=== PATIENT | female | born 1970 | race Caucasian/White ===

== ENCOUNTER → 2018-03-08 16:03 | Outpatient (CLI) | payer BC, SELFPAY ==
[2018-03-08 18:14] LABS: Absolute Lymphocyte Count 1.98 X10^3/ul (0.83-4.51); Absolute Neutrophil Count 3.8 X10^3/uL (2.0-7.7); Basophil# 0.06 X10^3/uL; Basophil% 0.9 % (0-1); Eosinophil# 0.32 X10^3/uL; Eosinophils% 4.7 % (0-5); Hematocrit 40.6 % (37-47); Hemoglobin 13.8 g/dl (12.0-15.0); Lymphocyte # 1.98 X10^3/ul (4.0); Lymphocyte % 29.2 % (19-41); Mean Corpuscular Hgb 29.4 pg (27.0-32.0); Mean Corpuscular Volume 86.6 fL (81-99); Mean Platelet Vol. 9.4 fl (6.2-12.0); Monocyte# 0.56 X10^3/uL; Monocyte% 8.2 % (0-10); Neutrophil # 3.84 X10^3/uL (2.7-7.7); Neutrophil % 56.6 % (47-70); Platelet Count 452 K/mm3 (150-450); RBC Distribution Width CV 11.9 % (11.6-14.6); RBC Distribution Width SD 37.1 fl (35.1-43.9); Red Blood Count 4.69 M/mm3 (4.2-5.4); White Blood Count 6.8 K/mm3 (4.4-11.0)
[2018-03-08 18:20] LABS: POSITIVE COUNT NO; POSITIVE DIFFERENTIAL NO; POSITIVE MORPHOLOGY NO
[2018-03-08 18:30] LABS: Erythrocyte Sedimentation Rate 17 mm/hr (0-20)
[2018-03-08 20:01] LABS: AST(SGOT) 29 U/L (15-37); Alanine Aminotransfer ALT/SGPT 44 U/L (13-56); Albumin, Serum 3.8 g/dL (3.2-5.0); Alkaline Phosphatase 119 U/L (45-117); Anion Gap 9 (5-15); BUN 20 mg/dL (7-18); BUN/Creat Ratio 25.3 RATIO (10-20); CRP 7.65 mg/L (0.0-3.0); Chloride 105 mmol/L (98-107); Creatinine, Serum 0.79 mg/dL (0.55-1.02); EST Glomerular Filtration Rate 82 mL/min (>60); Est Glom Filt Rate - Afr Amer 99 mL/min (>60); Globulin 3.7 g/dL (2.2-4.2); Glucose 94 mg/dL (74-106); Magnesium 2.3 mg/dL (1.6-2.6); Potassium 3.5 mmol/L (3.5-5.1); Protein, Total 7.5 g/dL (6.4-8.2); Rheumatoid Factor < 10.0 IU/mL (<15); Sodium Level 141 mmol/L (136-145); Thyroid Stim Hormone (TSH) 1.27 uIU/mL (0.358-3.74)
[2018-03-09 08:16] LABS: Vitamin B12 345 pg/mL (211-911); Vitamin D,25 Hydroxy 27.3 ng/mL (29.95-100.01)
[2018-03-11 09:13] LABS: ANTINUCLEAR ANTIBODIES DIRECT Negative (Negative)
== END ==
PROVIDERS: Family Provider Family Medicine; PCP Family Medicine; Visit Provider Family Medicine
DX: R53.83 Other fatigue (principal); R00.0 Tachycardia, unspecified
CPT/HCPCS: 36415; 80053; 82306; 82607; 83735; 84443; 85025; 85652; 86038; 86140; 86431

== ENCOUNTER → 2019-08-02 16:28 | Outpatient (CLI) | payer BC, SELFPAY ==
--- NOTE | 2019-08-02 16:34 | RAD_ITS ---
STUDY: X-RAY - PELVIS AND RIGHT HIP REASON FOR EXAM: Female, 49 years old. Right hip pain. TECHNIQUE: 2 views of the pelvis and hip. COMPARISON: None. FINDINGS: There is a non-specific bowel gas pattern. Normal visualized soft tissue structures. Normal bilateral iliac wings, sacroiliac joints and visualized sacrum. Normal bilateral superior and inferior pubic rami. There are degenerative changes of the pubic symphysis with articular narrowing and sclerosis. Normal bilateral ischial tuberosities. There are moderate to severe degenerative changes of the right hip characterized by joint space narrowing, subchondral sclerosis and marginal osteophytes. There are mild degenerative changes of the left hip. RAD/HIP, UNI W/ Pelvis 2-3 Views IMPRESSION: Moderate to severe degenerative changes of the right hip. Mild degenerative changes of the left hip. Electronically Signed: Dalila Skelton MD at 17:10 EDT Tel , Service support ,
== END ==
PROVIDERS: Family Provider Family Medicine; PCP Family Medicine; Referring Provider Family Medicine; Visit Provider Family Medicine
DX: M25.551 Pain in right hip (principal)
CPT/HCPCS: 73502

== ENCOUNTER → 2019-08-09 16:43 | Outpatient (CLI) | payer BC, SELFPAY ==
[2019-08-09 17:29] LABS: Absolute Lymphocyte Count 2.12 X10^3/uL (0.83-4.51); Absolute Neutrophil Count 3.5 X10^3/uL (2.0-7.7); Basophil# 0.09 X10^3/uL; Basophil% 1.4 % (0-1); Eosinophil# 0.26 X10^3/uL; Hematocrit 43.3 % (37-47); Hemoglobin 14.4 g/dL (12.0-15.0); Lymphocyte # 2.12 X10^3/ul (4.0); Lymphocyte % 32.7 % (19-41); Mean Corp Hgb Conc 33.3 g/dL (32-36); Mean Corpuscular Hgb 29.1 pg (27.0-32.0); Mean Corpuscular Volume 87.7 fL (81-99); Monocyte# 0.45 X10^3/uL; Monocyte% 6.9 % (0-10); NRBC Flagged by Analyzer 0 % (0-5); Neutrophil # 3.53 X10^3/uL (2.7-7.7); Neutrophil % 54.5 % (47-70); Platelet Count 429 K/mm3 (150-450); RBC Distribution Width CV 11.5 % (11.6-14.6); RBC Distribution Width SD 37.1 fl (35.1-43.9); Red Blood Count 4.94 M/mm3 (4.2-5.4); White Blood Count 6.5 K/mm3 (4.4-11.0)
[2019-08-09 18:05] LABS: Prolactin 5.4 ng/mL; Thyroid Stim Hormone (TSH) 1.19 uIU/mL (0.358-3.74)
== END ==
PROVIDERS: Family Provider Family Medicine; PCP Family Medicine; Referring Provider Family Medicine; Visit Provider Family Medicine
DX: R55 Syncope and collapse (principal)
CPT/HCPCS: 36415; 84146; 84443; 85025

== ENCOUNTER → 2019-10-12 17:46 | Outpatient (CLI) | payer BC, SELFPAY ==
--- NOTE | 2019-10-12 17:49 | CT_ITS ---
STUDY: CT ABDOMEN AND PELVIS WITHOUT CONTRAST REASON FOR EXAM: Female, 49 years old. Left groin pain RADIATION DOSAGE (If Supplied By Facility): CTDIvol = ( 19.87 ) mGy, DLP = ( 1032.57 ) mGycm TECHNIQUE: Transaxial images were obtained from the dome of the diaphragm to the symphysis pubis without oral contrast, and without intravenous contrast. Sagittal and coronal images were reconstructed. Individualized dose optimization techniques were used for this CT. COMPARISON: None. FINDINGS: Left lower lobe calcified granuloma. The visualized portions of the heart are within normal limits. Normal liver. Normal gallbladder and extrahepatic biliary system. Granulomatous calcifications in the spleen. Normal pancreas. Normal bilateral adrenal glands. Normal right kidney. Normal left kidney. Normal visualized stomach. Normal small intestine. Mild fecal retention in the colon. The appendix is visualized and appears normal. Normal abdominal aorta. Normal inferior vena cava. Normal retroperitoneum. Normal urinary bladder. Normal uterus. Small fatty umbilical hernia. Moderate degenerative changes of the right hip. CT/Abdomen/Pelvis without Cont IMPRESSION: Small fatty umbilical hernia. Colonic fecal retention. Electronically Signed: Steve Ridley DO at 20:41 EST Tel [phone], Service support ,
== END ==
PROVIDERS: Family Provider Family Medicine; PCP Family Medicine; Referring Provider Nurse Practitioner Family; Visit Provider Nurse Practitioner Family
DX: R10.32 Left lower quadrant pain (principal)
CPT/HCPCS: 74176

== ENCOUNTER 2019-10-25 16:30 | Outpatient (RCR) | payer BC, SELFPAY ==
--- NOTE | 2019-08-16 19:14 | HP.PTEVAL_ITS ---
Patient's Visit Information SEVEN LEMONS is a 49 year old F referred to Physical Therapy by Dena Larios MD with a diagnosis of OA B hips. Date of Evaluation: 08/16/19 Physical Therapist: DANE Madrigal - Visit Plan Frequency: 2x /Week Duration: 4-6 Weeks Plan: 2X/ week for 4-6 weeks for B hip strengthening, gait training, R hip flexion AROM, core strength, stretching with HEP and possible trail of AT if land proofs to be too painful - Subjective Findings: R hip has been bothering her for years and it is getting worse. Years ago she went to a rhumatologist and was told that she was inconclusive and sto pped taking her meds cause she was not sure that she wanted to continue if it was inconclusive. She said the meds did help. Dr Larios did do an x-ray. Pt stands with both feet flat on the floor and stand. She has to spread her legs so she can stand straight or she has to stand on one foot versus the other. Pt has horrible walking stamina ( shopping wears her out). If she on her feet for more than a couple hours then she is done for ( hurts in feet and in legs). Stairs: pt does reciprical steps and uses one railing. Sitting for a long period of time she gets stiff and harder to get up and first few steps hurts. She was doing [place] up until Marilyn and she thought it made her feel better. She sometimes has groin pain and tightness in her piriformsis and all through her saddle and down R leg. Achy at times of on feet for awhile. Sometimes it hurts to lay on the R side. She has a little numbess in her R foot and no real back pain. - Pain R hip pain Pain Intensity (Out of 10): 1 Pain Intensity Range: 8 L hip pain Pain Intensity (Out of 10): 0 Pain Intensity Range: 3 - Objective sit to stand: able but has hardly any weight on her R leg when standing without her arms. Gait: Walks with decrease stance time on the R LE and WBOS and decrease stride length. R hip flexion 94 degrees L hip flexion 124 degrees. LE MMT: R hip flex 3+/5 and L hip flex 4-/5, R hip abd 4-/5 and L hip abd 4/5, R knee ext 4-/5 and l knee ext 4/5, B knee flex 4/5. Pt is able to walk on heels and toes without difficyulty. Pt is able to do 3/4 ROM bridge. Pt's L LE does appear to be shorter in supine after bridging to set pelvis - Goals Goal 1:: I HEP Goal Time Frame: 4-6 Weeks Goal 2:: Increase R hip flexion AROM to 120 degrees Goal Time Frame: 4-6 Weeks Goal 3:: Increase L hip strength by 1/2 muscle grade ( at time of eval: LE MMT: R hip flex 3+/5 and L hip flex 4-/5, R hip abd 4-/5 and L hip abd 4/5, R knee ext 4-/5 and l knee ext 4/5, B knee flex 4/5. Pt is able to walk on heels and toes without difficyulty. Pt is able to do 3/4 ROM) Goal Time Frame: 4-6 Weeks Goal 4:: Be able to walk with normal gait pattern with equal stance time on B LE's Goal Time Frame: 4-6 Weeks - Rehabilitation Potential Rehabilitation Potential: Good - Anticipated Interventions Patient/Client Instruction: Educate patient on: Condition, Plan of Care For the Purpose of:: To decrease pain, To increase ROM, To improve nutrient delivery to tissue, To improve muscle performance and motor function, To improve ability to perform ADL's, To increase tolerance to activity/condition/position, To improve performance and independence with ADL's, To decrease level of supervision to perform tasks, To improve ability of physical actions for home/community/work/leisure, To improve gait and locomotor functions, To improve health of tissue, To decrease soft tissue restriction, To increase flexibility/ROM, To improve balance, To improve safety with gait Therapeutic Exercise to Include: Strength training, Balance training, Postural training, Flexibilty training, Gait and locomotor training, Active ROM For the Purpose of:: To decrease pain, To increase ROM, To improve nutrient delivery to tissue, To improve muscle performance and motor function, To improve ability to perform ADL's, To increase tolerance to activity/condition/position, To improve performance and independence with ADL's, To decrease level of supervision to perform tasks, To improve ability of physical actions for home/community/work/leisure, To improve gait and locomotor functions, To improve health of tissue, To decrease soft tissue restriction, To increase flexibility/ROM, To improve safety with gait Functional Training to Include: Gait training For the Purpose of:: To improve gait and locomotor functions Manual Therapy Techniques to Include: Passive ROM For the Purpose of:: To increase ROM Thank you for the opportunity to evaluate your patient. For Medicare and Medicare HMO plans, please review the plan of care and approve it. It will need to be FAXED BACK to us at [phone] for Medicare purposes. For Medicare only, by signing this I certify the plan of care. Please let me know if there are questions or concerns regarding this plan of care. Physician Signature: Date:____
--- NOTE | 2019-10-25 17:13 | HP.PTDCSUM ---
HP - PT D/C Summary It has been my pleasure to treat SEVEN LEMONS under orders from Dena Larios MD, for the diagnosis of OA B hips for a total of 7 visit(s). Discharge Date: 10/25/19 Please see the following information for a summary of their discharge status. - Subjective Subjective: The exercises have become easier and she tries to pay attention to the way that is walking and that is getting easier. - Pain R hip pain Pain Intensity (Out of 10): 5 L hip pain Pain Intensity (Out of 10): 3 - Overall Improvement % Improvement: 0 - Objective Objective/Function: R hip flexion was 96 degrees flexion. R hip flexion in supine was 96 degrees with increase pain at end range. R hip MMT: abd 4+/5, flexion 4-/5, knee ext and knee flexion 4+/5. Gait: walks with decreased stance time on the Right. - Goals Goal 1:: I HEP Goal Progress: Goal Met Goal 2:: Increase R hip flexion AROM to 120 degrees Goal Progress: Progressing Goal 3:: Increase L hip strength by 1/2 muscle grade ( at time of eval: LE MMT: R hip flex 3+/5 and L hip flex 4-/5, R hip abd 4-/5 and L hip abd 4/5, R knee ext 4-/5 and l knee ext 4/5, B knee flex 4/5. Pt is able to walk on heels and toes without difficyulty. Pt is able to do 3/4 ROM) Goal Progress: Goal Met Goal 4:: Be able to walk with normal gait pattern with equal stance time on B LE's Goal Progress: Progressing - Plan Plan: DC PT back to physician. Pt will continue to do HEP. SHe has made improvements in strength but not with her pain. Recommend further diagostics, physician reassessment. - D/C Information Discharge Comments: DC PT to HEP and physician reassessment. If there are questions or concerns regarding this patient's physical therapy, please feel free to call me at [phone]. Thank you for the referral of this patient. Sincerely, Patti Mcfarland, MPT
== END 2019-10-25 19:00 | disposition home or self-care (01) ==
LOC: PT 16:30
PROVIDERS: Family Provider Family Medicine; PCP Family Medicine; Referring Provider Family Medicine; Visit Provider Family Medicine
DX: M16.0 Bilateral primary osteoarthritis of hip (principal)
CPT/HCPCS: 97110; 97161; 97530

== ENCOUNTER → 2021-07-25 | Outpatient (CLI) | payer BC, SELFPAY | END | disposition home or self-care (01) | PROVIDERS: Visit Provider Family Medicine | DX: Z20.822 Contact with and (suspected) exposure to COVID-19 (principal) | CPT/HCPCS: 87635; U0005; U0003 ==

== ENCOUNTER 2021-12-03 18:15 | Outpatient (CLI) | payer BC, SELFPAY | END 2021-12-03 23:59 | disposition short-term general hospital (02) | PROVIDERS: Referring Provider Nurse Practitioner Family; Visit Provider Nurse Practitioner Family | DX: U07.1 COVID-19 (principal) | CPT/HCPCS: 87635; U0003; U0005 ==

== ENCOUNTER → 2024-02-10 | Outpatient (CLI) | payer BC, OTHER, SELFPAY ==
[2024-02-10 12:23] LABS: Absolute Lymphocyte Count 1.88 X10^3/uL (0.83-4.51); Absolute Neutrophil Count 3.1 X10^3/uL (2.0-7.7); Basophil# 0.08 X10^3/uL; Basophil% 1.3 % (0-1); Eosinophil# 0.46 X10^3/uL; Eosinophils% 7.7 % (0-5); Hematocrit 41.2 % (37-47); Lymphocyte # 1.88 X10^3/ul (0.83-4.51); Lymphocyte % 31.5 % (19-41); Mean Corpuscular Hgb 29.5 pg (27.0-32.0); Mean Corpuscular Volume 86.7 fL (81-99); Mean Platelet Vol. 9.1 fl (6.2-12.0); Monocyte# 0.46 X10^3/uL; Monocyte% 7.7 % (0-10); NRBC Flagged by Analyzer 0 % (0-5); Neutrophil # 3.05 X10^3/uL (2.7-7.7); Neutrophil % 51.1 % (47-70); Platelet Count 466 K/mm3 (150-450); RBC Distribution Width CV 11.6 % (11.6-14.6); RBC Distribution Width SD 36.8 fl (35.1-43.9); Red Blood Count 4.75 M/mm3 (4.2-5.4)
[2024-02-10 13:04] LABS: Vitamin D,25 Hydroxy 41.5 ng/mL
[2024-02-10 15:04] LABS: ALB/GLOB Ratio 1.1 RATIO (0.9-2.4); AST(SGOT) 23 U/L (15-37); Alanine Aminotransfer ALT/SGPT 27 U/L (13-56); Albumin, Serum 3.8 g/dL (3.2-5.0); Alkaline Phosphatase 89 U/L (45-117); Anion Gap 7 (5-15); BUN 16 mg/dL (7-18); BUN/Creat Ratio 20.1 RATIO (10-20); Calcium,Total 9.5 mg/dL (8.5-10.1); Chloride 105 mmol/L (98-107); Cholesterol 151 mg/dL (200); EST Glomerular Filtration Rate 80 mL/min (>60); Est Glom Filt Rate - Afr Amer 96 mL/min (>60); Globulin 3.6 g/dL (2.2-4.2); Glucose 104 mg/dL (74-106); High Density Lipoprotein 44 mg/dL; Potassium 4.4 mmol/L (3.5-5.1); Protein, Total 7.4 g/dL (6.4-8.2); Sodium Level 139 mmol/L (136-145); Thyroid Stim Hormone (TSH) 1.28 uIU/mL (0.358-3.74); Triglycerides 141 mg/dL; Very Low Density Lipoprotein 28 mg/dL (5-40)
== END | disposition home or self-care (01) ==
LOC: MFPLAB 10:29
PROVIDERS: Family Medicine; PCP Family Medicine; Visit Provider Family Medicine
DX: R00.0 Tachycardia, unspecified (principal); R53.83 Other fatigue
CPT/HCPCS: 36415; 80053; 80061; 82306; 84443; 85025

== ENCOUNTER → 2024-04-07 | Outpatient (CLI) | payer OTHER, SELFPAY ==
--- NOTE | 2024-04-07 14:55 | ECHOD_ITS ---
Reason For Study: Syncope Procedure This was a 2D Doppler, Color Flow transthoracic echocardiogram. Exam performed in department. Left Ventricle Normal size and thickness. The left ventricular ejection fraction is 60 %. Normal diastology for age. Right Ventricle Normal right ventricle. Atria The left and right atria are normal. Mitral Valve Normal mitral valve. Tricuspid Valve Trivial tricuspid valve insufficiency. Right ventricular systolic pressure estimated to be 38 mmHg. Aortic Valve Trisinus/trileaflet aortic valve. Pulmonic Valve The pulmonic valve is not well visualized. Trivial pulmonic valve insufficiency. Great Vessels Normal sized aortic root. Pericardium/Pleural No pericardial effusion. MMode/2D Measurements & Calculations LVIDd: 4.7 cm IVSd: 0.90 cm Ao root diam: 2.9 cm LVIDs: 3.3 cm LVPWd: 0.98 cm RVDd: 3.9 cm FS: 28.6 % LAV(MOD-sp2): 23.3 ml LVAd ap4: 24.4 cm2 SV(MOD-sp4): 42.5 ml LVLd ap4: 7.4 cm EDV(MOD-sp4): 69.2 ml EDV(sp4-el): 68.1 ml LVAs ap4: 14.1 cm2 LVLs ap4: 6.5 cm ESV(MOD-sp4): 26.7 ml ESV(sp4-el): 26.0 ml EF(MOD-sp4): 61.4 % EF(sp4-el): 61.9 % SV(sp4-el): 42.2 ml LA dimension(2D): 3.2 cm TAPSE: 2.3 cm Time Measurements MV dec time: 0.22 sec Doppler Measurements & Calculations MV E max jose: 79.5 cm/sec Lat Peak E' Jose: 16.0 cm/sec Med Peak E' Jose: 12.3 cm/sec MV A max jose: 82.2 cm/sec E/E' lat: 5.0 E/E' med: 6.5 MV E/A: 0.97 MV V2 max: 94.6 cm/sec MV dec slope: 366.9 cm/sec2 Ao V2 max: 125.9 cm/sec MV max P.6 mmHg Ao max P.3 mmHg MV V2 mean: 61.5 cm/sec Ao V2 mean: 89.5 cm/sec MV mean P.7 mmHg Ao mean P.5 mmHg MV V2 VTI: 24.6 cm Ao V2 VTI: 24.5 cm LV V1 max: 106.8 cm/sec PA V2 max: 98.1 cm/sec TR max jose: 240.6 cm/sec LV V1 max P.6 mmHg TR max P.2 mmHg ECHO/Echo Complete Interpretation Summary The left ventricular ejection fraction is 60 %. Right ventricular systolic pressure estimated to be 38 mmHg. Ordering Physician: Rajan Kirk Referring Physician: Rajan Kirk Performed By: Kika Boyd RVT, RDCS and Student
== END | disposition home or self-care (01) ==
LOC: CVS 14:53
PROVIDERS: PCP Family Medicine; Referring Provider Family Medicine; Visit Provider Family Medicine
DX: R55 Syncope and collapse (principal)
CPT/HCPCS: 93306

== ENCOUNTER → 2024-12-22 | Outpatient (CLI) | payer OTHER, SELFPAY ==
[2024-12-22 17:37] LABS: Absolute Lymphocyte Count 1.74 X10^3/uL (0.83-4.51); Absolute Neutrophil Count 3.3 X10^3/uL (2.0-7.7); Basophil# 0.09 X10^3/uL; Basophil% 1.5 % (0-1); Eosinophil# 0.28 X10^3/uL; Eosinophils% 4.7 % (0-5); Hematocrit 41.8 % (37-47); Hemoglobin 13.5 g/dL (12.0-15.0); Lymphocyte # 1.74 X10^3/ul (0.83-4.51); Lymphocyte % 29.3 % (19-41); Mean Corp Hgb Conc 32.3 g/dL (32-36); Mean Corpuscular Hgb 28.8 pg (27.0-32.0); Mean Corpuscular Volume 89.1 fL (81-99); Mean Platelet Vol. 9.2 fl (6.2-12.0); Monocyte# 0.45 X10^3/uL; Monocyte% 7.6 % (0-10); NRBC Flagged by Analyzer 0 % (0-5); Neutrophil # 3.34 X10^3/uL (2.7-7.7); Neutrophil % 56.4 % (47-70); Platelet Count 520 K/mm3 (150-450); RBC Distribution Width CV 11.7 % (11.6-14.6); RBC Distribution Width SD 37.2 fl (35.1-43.9); Red Blood Count 4.69 M/mm3 (4.2-5.4); White Blood Count 5.9 K/mm3 (4.4-11.0)
[2024-12-22 18:02] LABS: Vitamin D,25 Hydroxy 47.3 ng/mL
[2024-12-22 18:31] LABS: ALB/GLOB Ratio 0.9 RATIO (0.9-2.4); AST(SGOT) 19 U/L (15-37); Alanine Aminotransfer ALT/SGPT 25 U/L (13-56); Albumin, Serum 3.7 g/dL (3.2-5.0); Alkaline Phosphatase 114 U/L (45-117); Anion Gap 8 (5-15); BUN 15 mg/dL (7-18); BUN/Creat Ratio 20.2 RATIO (10-20); Calcium,Total 9.6 mg/dL (8.5-10.1); Chloride 105 mmol/L (98-107); Cholesterol 117 mg/dL (200); Creatinine, Serum 0.74 mg/dL (0.55-1.02); EST Glomerular Filtration Rate 86 mL/min (>60); Est Glom Filt Rate - Afr Amer 104 mL/min (>60); Globulin 3.9 g/dL (2.2-4.2); Glucose 90 mg/dL (74-106); High Density Lipoprotein 52 mg/dL; Potassium 3.9 mmol/L (3.5-5.1); Protein, Total 7.6 g/dL (6.4-8.2); Sodium Level 139 mmol/L (136-145); Triglycerides 61 mg/dL; Very Low Density Lipoprotein 12 mg/dL (5-40)
== END | disposition home or self-care (01) ==
PROVIDERS: PCP Family Medicine
DX: J32.9 Chronic sinusitis, unspecified (principal)
CPT/HCPCS: 36415; 80053; 80061; 82306; 84443; 85025

== ENCOUNTER → 2025-02-14 | Outpatient (CLI) | payer OTHER, SELFPAY ==
--- NOTE | 2025-02-14 16:40 | RAD_ITS ---
PROCEDURE: Pelvis and bilateral hip radiographs REASON FOR EXAM: OSTEOARTHRITIS TECHNIQUE: Five views of the pelvis and both hips COMPARISON: No recent priors FINDINGS: See impression RAD/Hips B/L min 2 views w/ Pelvis IMPRESSION: Bilateral hip osteoarthritis, severe on the right including near [id number] a rticulation, subchondral sclerosis and marginal osteophytes. Mild right hip osseous remodeling also noted. Negative for acute displaced fracture or dislocation. Reading Location: [facility]
== END | disposition home or self-care (01) ==
LOC: MTRAD 16:40
PROVIDERS: PCP Family Medicine; Referring Provider Family Medicine; Visit Provider Family Medicine
DX: M16.0 Bilateral primary osteoarthritis of hip (principal)
CPT/HCPCS: 73521

== ENCOUNTER 2025-05-03 18:00 | Outpatient (RCR) | payer OTHER, SELFPAY ==
--- NOTE | 2025-03-21 09:02 | HP.PTEVAL_ITS ---
Patient's Visit Information Visit Information Visit Information: SEVEN LEMONS is a 55 year old F referred to Physical Therapy by Dr. Bruce Ferguson DO with a diagnosis of B hip and knee pain. Date of Evaluation: 03/21/25 Physical Therapist: Amor Collins, PT, ATC Visit Plan Frequency: 2x /Week Duration: 4-6 Weeks Plan: B IT band and piriformis stretching, stick rollout, core strengthening, an d HEP Subjective Subjective: Pt reports she has had B lateral leg pain for greater than 10 years. Pt reports she has had several episodes of PT over that time span that always makes her stronger, but never fixes the problem. Pt reports she has recently received cortisone injections into her hips near the bursa regions. Pt notes she has developed knee and LBP over the years secondary to the many compensating patterns she uses secondary to her hip pain. Pt notes she has had xrays on her hips which reveal she is bone on bone. Pt also notes she has been told by one doctor that she has RA. Pt reports she believes this pain has lasted as long as it has secondary to her caring for her children over this time span while she put her needs on hold. Pt notes occasional tingling and numbness in her feet, but no other B LE radiculpathy is present at this time. Pt notes she has intermittent LBP, but none now. Pt notes occasional sleep difficulty secondary to pain. Pt reports she used to exercise a lot and is unable to at this time. Pt also notes she is limited with all yard work at this time. 0/10 pain at rest, 8/10 pain at worst Pain B hips: Pain Intensity (Out of 10): 0 Pain Intensity Range: 8 Objective Objective: Neuro: B LE sensation is WNL to light touch. B patellar reflex= 1/3 Palpation: Pt is very sore along B trochanters. Pt also notes pain along the glute medius regions MMT: R hip flex= 15, abd= 37, add= 27 #F; L hip flex= 10, abd= 31, add= 40#F ROM: B hips are severely limited with IR. All other motions are WFL when compared bilaterally Special tests: Pos piriformis test. 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 For Medicare and Medicare HMO plans, please review the plan of care and approve it. It will need to be FAXED BACK to us at [phone] for Medicare purposes. For Medicare only, by signing this I certify the plan of care. Please let me know if there are questions or concerns regarding this plan of care. Physician Signature: Date:
--- NOTE | 2025-05-03 18:34 | HP.PTDCSUM ---
Discharge Summary D/C summary: It has been my pleasure to treat SEVEN LEMONS referred by Dr. Bruce Ferguson DO, with the diagnosis of B hip and knee pain for a total of 8 visit(s). Discharge Date: Please see the following information for a summary of their discharge status. Subjective Subjective: Pt reports all her relief has been temporary thus far Pain B hips: Pain Intensity (Out of 10): 2 Overall Improvement % Improvement: 0 Objective Objective/Function: B hip pain is 2/10 B hip IR ROM is WNL and equal bilaterally IT band flexibility has not really improved, but will continue to improve through HEP Pt is I with HEP Goals Goal 1:: Decrease B hip pain x 50% to aid with tolerating increased ambulation Goal Progress: Not Progressing Goal 2:: Increase B IT band flexibility to aid with decreasing B hip pain Goal Progress: Not Progressing Goal 3:: Increase B hip IR ROM x 1 grade to aid with decreasing hip pain Goal Progress: Progressing Goal 4:: I with HEP Goal Progress: Goal Met Plan Plan: Discontinue secondary to lack of improvement. Return to doctor D/C Information d/c sentence: If there are questions or concerns regarding this patient's physical therapy, please feel free to call me at [phone]. Thank you for the referral of this patient. Sincerely, Amor Collins, PT, ATC Balance/Gait/Functional tests Balance/Special Test Scores Lower Extremity Functional Score: 29 Improvement % Improvement: 0
== END 2025-05-03 19:00 | disposition home or self-care (01) ==
LOC: PT 18:00
PROVIDERS: PCP Family Medicine; Referring Provider Orthopaedic Surgery; Visit Provider Orthopaedic Surgery
DX: M70.61 Trochanteric bursitis, right hip (principal); M70.62 Trochanteric bursitis, left hip; M76.31 Iliotibial band syndrome, right leg; M76.32 Iliotibial band syndrome, left leg
CPT/HCPCS: 97110; 97140; 97161; 97530

== ENCOUNTER 2025-09-01 10:13 | Outpatient (CLI) | payer OTHER, SELFPAY ==
--- OUTSIDE RECORDS SUMMARY | 2025-09-01 10:17 | XMS RPT_ITS | CCD ---
Author Organization [facility] CliniSymo Care Team Providers Care Real Estate Director Name Role Phone Dena Larios Primary Care Provider [phone] Rajan Olsen MD Primary Care Provider [phone] Zahraa Yepez Attending Provider Yelena HERNADEZ, Rajan Referring Provider Deangelo Birce Attending Provider Rajan Olsen MD Attending Provider [phone] Dena Larios Primary Care Provider [phone] Rajan Olsen MD Primary Care Provider [phone] Rajan Olsen MD Referring Provider [phone] Dr. Bruce Ferguson DO Attending Provider Dr. Jeff Leija MD Attending Provider Dr. Bruce Ferguson DO Referring Provider Yelena, Chalon Primary Care Unavailable Jeff Leija Attending Unavailable Yelena, Chalon Primary Care Unavailable Bruce Ferguson Attending Unavailable Yelena, Chalon Referring Unavailable Deangelo Hernandez Attending Unavailable Yelena, Chalon Primary Care Unavailable Yelena, Chalon Referring Unavailable Bruce Ferguson Attending Unavailable Bruce Ferguson Referring Unavailable Yelena, Chalon Primary Care Unavailable Yelena, Chalon Primary Care Unavailable Yelena, Chalon Attending Unavailable Yelena, Chalon Referring Unavailable Zahraa Isaac NP Attending Unavailable Yelena, Chalon Primary Care Unavailable Yelena, Chalon Referring Unavailable Rajan Olsen MD Primary Care Provider [phone] SAMIA NA Referring Unavailable SAMIANA MORENO Attending Unavailable DENA LARIOS Primary Care Unavailable SAMIA, NA Referring Unavailable MENDYDENA WATT Primary Care Unavailable RAJAN OLSEN Primary Care Unavailable YIFAN HILL Attending Unavailable MENDYDENA WATT Primary Care Unavailable RACHEL LEY Attending Unavail able SELF Referring Unavailable PERFECTOVICKYDENA WATT Primary Care Unavailable SAMIA, NA Referring Unavailable SAMIA, NA Attending Unavailable Allergies Allergy Classification Reported Allergen(s) Allergy Type Date of Onset Reaction(s) Facility (11 sources) Seasonal allergy; Translations: [SEASONAL ALLERGIES] Allergy to substance 02-14-20 19 Other: See Comments [facility] Work Phone: (11 sources) Theophylline; Translations: [THEOPHYLLINE] Drug Allergy 09-15-20 21 Other: See Comments [facility] Work Phone: (11 sources) Iodinated Contrast Media; Translations: [IODINATED CONTRAST MEDIA] Propensity to adverse reactions to drug 02-14-20 19 Other: See Comments [facility] Work Phone: (3 sources) Triiodobenzoic Acids Propensity to adverse reactions 03-15-20 23 PT UNABLE TO RESPOND-NEEDS F/U [facility] (1 source) Iodinated Contrast Media Drug allergy (disorder) 03-07-20 25 [facility] Repository Medications Current Medications Medication Drug Class(es) Dates Sig (Normalized) Sig (Original) betamethasone 0.5 mg/ml / clotrimazole 10 mg/ml topical cream (2 sources) Azole Antifungal, Corticosteroid Start: 10-06-2022 End: 10-13-2022 clotrimazole-beta methasone (LOTRISONE) cream Apply 1 application to affected area twice daily for 7 days. 45 g 0 10/06/2022 10/13/2022 Active Comment on above: Apply 1 application to affected area twice daily for 7 days. cephalexin 500 mg oral capsule (1 source) Cephalosporin Antibacterial Start: 03-09-2022 End: 03-14-2022 take 1 capsule by mouth four times daily cephALEXin (KEFLEX) 500 mg capsule Indications: Erysipelas Take 1 capsule by mouth four times daily for 5 days. 20 capsule 0 03/09/2022 03/14/2022 Active Comment on above: Take 1 capsule by mo [facility] four times daily for 5 days. cetirizine hydrochloride 10 mg oral capsule (12 sources) Histamine-1 Receptor Antagonist Start: 12-31-2024 take 1 capsule by mouth once daily as needed Cetirizine (Zyrtec) 10 mg capsule Active 10 mg PO daily as needed December 31, 2024 1:00am take 1 tablet by mouth once amalia y cetirizine (ZYRTEC) 10 mg tablet Take 10 mg by mouth once daily. Active Comment on above: Take 10 mg by mouth once daily. cholecalciferol 0.05 mg oral capsule (13 sources) Vitamin D Start: 01-14-20 take 1 capsule by mouth once daily Cholecalciferol (Vitamin D3) 50 mcg (2,000 unit) capsule Active 50 ug PO DAILY January 14, 2023 1:00am take 1 capsule by mouth once kishore ly Cholecalciferol, Vitamin D3, 25 mcg (1,000 unit) cap Take 1,000 Units by mouth once daily. Active Cholecalciferol, Vitamin D3, (VITAMIN D) 25 mcg (1,000 unit) cap Take 1,000 Units by mouth once daily. 0 Active Comment on above: Take 1,000 Units by mouth once daily. etodolac 500 mg oral tablet (1 source) Nonsteroidal Anti-inflammatory Drug Start: 03-07-20 take 1 tablet by mouth twice daily Etodolac 500 mg tablet Active 500 mg PO TWICE A DAY 60 March 07, 2025 12:00am Do not take in conjunction with other NSAID. Tylenol is okay. ipratropium bromide 0.042 mg/actuat metered dose nasal spray (3 sources) Anticholinergic Start: 12-07-19 ipratropium bromide (ATROVENT) 42 mcg (0.06 %) nasal spray Use 2 Sprays in the nose three times a day. 12/07/2024 Active meloxicam 15 mg oral tablet (8 sources) Nonsteroidal Anti-inflammatory Drug Start: 09-15-20 End: 01-31-20 25 take 1 tablet by mouth once daily meloxicam (MOBIC) 15 mg tablet Take 1 tablet by mouth once daily. 30 tablet 1 09/15/2021 01/30/2025 Discontinued Comment on above: Take 1 tablet by mau th once daily. Multivitamin preparation (1 source) Start: 01-14-20 take 1 tablet by mouth once daily Multivitamin Active 1 TABLET PO DAILY January 14, 2023 1:00am multivitamin tablet (8 sources) take 1 tablet by mouth once daily multivitamin tablet Take 1 tablet by mouth once daily. Active take 1 tablet by mouth once amalia y multivitamin tablet Take 1 tablet by mouth once daily. 0 Active Comment on above: Take 1 tablet by mau th once daily. Multivitamin tablet (2 sources) Start: 3 Multivitamin tablet Active 1 {tbl} PO DAILY January 14, 2023 1:00am phenazopyridine hydrochloride 200 mg oral tablet (1 source) Start: 5 phenazopyridine (PYRIDIUM) 200 mg tablet Indications: UTI symptoms Take 1 tablet by mouth three times a day as needed for pain for up to 6 doses. 6 tablet 07/04/2025 Active psyllium husk (METAMUCIL ORAL) (10 sources) take 1 dose by mouth once daily psyllium husk (METAMUCIL ORAL) Take 1 Dose by mouth once daily. Active take 1 dose by mouth once daily psyllium husk (METAMUCIL ORAL) Take 1 Dose by mouth once daily. 0 Active Comment on above: Take 1 Dose by mouth once daily. sulfamethoxazole 800 mg / trimethoprim 160 mg oral tablet (1 source) Dihydrofolate Reductase Inhibitor Antibacterial, Sulfonamide Antimicrobial Start: 07-18-20 End: 07-25-20 take 1 tablet by mouth twice daily sulfamethoxazole-t rimethoprim (BACTRIM DS) 800-160 mg per tablet Indications: Hematuria, unspecified type Take 1 tablet by mouth two times a day for 7 days. 14 tablet 07/18/2025 07/25/2025 Active Completed/Discontinued Medications Medication Drug Class(es) Dates Sig (Normalized) Sig (Original) fluticasone propionate 0.05 mg/actuat metered dose nasal spray (4 sources) Corticosteroid End: 10-06-2022 take 2 spray(s) nasal route once daily fluticasone (FLONASE) 50 mcg/actuation nasal spray Use 2 Sprays in each nostril once daily. 0 10/06/2022 Discontinued Comment on above: Use 2 Sprays in each nostril once daily. Hydrocortisone 2.5%/Lidocaine 5% Suppository (Cmpd) [Hydrocortisone 2.5%/Lidocaine 5% Suppository (Compound)] (Hydrocortisone ) suppository (3 sources) Start: 01-14-2023 End: 12-31-2024 Hydrocortisone 2.5%/Lidocaine 5% Suppository (Cmpd) [Hydrocortisone 2.5%/Lidocaine 5% Suppository (Compound)] (Hydrocortisone ) suppository Discontinued 0 .Route January 14, 2023 1:00am December 31, 2024 1:14pm one suppository twice daily Start: 01-14-2023 Hydrocortisone 2.5%/Lidocaine 5% Suppository (Cmpd) [Hydrocortisone 2.5%/Lidocaine 5% Suppository (Compound)] (Hydrocortisone ) suppository Active 0 .Route January 14, 2023 1:00am one suppository twice daily multivitamin (DAILY MULTI-VITAMIN) tablet (2 sources) take 1 tablet by mouth once daily multivitamin (DAILY MULTI-VITAMIN) tablet Take 1 tablet by mouth once daily. 0 Active Comment on above: Take 1 tablet by [facility] once daily. Ubidecarenone-[place] 3-Vit E (Co N-92-Staevza E-Fish Oil) 25-150-200 mg-mg-unit capsule (3 sources) Start: End: Ubidecarenone-[place] 3-Vit E (Co M-97-Xpnbcmu E-Fish Oil) 25-150-200 mg-mg-unit capsule Discontinued 1 NMA PO DAILY January 14, 2023 1:00am March 07, 2025 8:38am Start: 01-14-2023 Ubidecarenone- [place] 3-Vit E (Co F-72-Zrdghph E-Fish Oil) 25-150-200 mg-mg-unit capsule Active 1 NMA PO DAILY January 14, 2023 1:00am Start: 01-14-2023 take 1 capsule by mo [facility] once daily Ubidecarenone-[place] 3-Vit E (Co J-27-Jrtarnp E-Fish Oil) 25-150-200 mg-mg-unit capsule Active 1 CAP PO DAILY January 14, 2023 1:00am Vitamin B Complex (B Complex-Vitamin B12) tablet (3 sources) Start: 01-14-2023 End: 03-07-2025 Vitamin B Complex (B Complex-Vitamin B12) tablet Discontinued 1 {tbl} PO DAILY January 14, 2023 1:00am March 07, 2025 8:38am Start: 01-14-2023 Vitamin B Comp yazmin (B Complex-Vitamin B12) tablet Active 1 {tbl} PO DAILY January 14, 2023 1:00am Start: 01-14-2023 take 1 tablet by mau th once daily Vitamin B Complex (B Complex-Vitamin B12) tablet Active 1 TABLET PO DAILY January 14, 2023 1:00am Problems Active Problems Problem Classification Problem Date Documented Da te Episodic/Chronic Abdominal pain (1 source) Pelvic and perineal pain; Translations: [Pelvic pressure in female] Onset: 07-04-2025 Episodic Genitourinary symptoms and ill-defined conditions (4 sources) Blood in urine; Translations: [Hematuria, unspecified] Onset: 07-04-2025 07-18-2025 Episodic Hemorrhoids (3 sources) Hemorrhoids; Translations: [Unspecified hemorrhoids] 01-14-2023 Episodic Mycoses (1 source) Candidiasis of skin; Translations: [Candidiasis of skin and nail] Episodic Osteoarthritis (7 sources) Arthritis; Translations: [Unspecified osteoarthritis, unspecified site] Onset: 01-30-2025 01-14-2023 Chronic Other connective tissue disease (2 sources) H/O: back problem; Translations: [Personal history of other diseases of the musculoskeletal system and connective tissue] 01-14-2023 Episodic Other connective tissue disease (2 sources) Trochanteric bursitis; Translations: [Trochanteric bursitis, right hip] 03-07-2025 Episodic Other connective tissue disease (2 sources) Iliotibial band friction syndrome; Translations: [Iliotibial band syndrome, right leg] 03-07-2025 Episodic Other connective tissue disease (1 source) Trochanteric bursitis, right hip; Translations: [Trochanteric bursitis, right hip] Onset: 05-07-2025 Episodic Other connective tissue disease (1 source) Trochanteric bursitis, left hip; Translations: [Trochanteric bursitis, left hip] Onset: 05-07-2025 Episodic Other connective tissue disease (1 source) Iliotibial band syndrome, right leg; Translations: [Iliotibial band syndrome, right leg] Onset: 05-07-2025 Episodic Other connective tissue disease (1 source) Iliotibial band syndrome, left leg; Translations: [Iliotibial band syndrome, left leg] Onset: 05-07-2025 Episodic Other female genital disorders (1 source) Other specified noninflammatory disorders of vagina; Translations: [Vaginal odor] Onset: 07-04-2025 Episodic Other gastrointestinal disorders (3 sources) Constipation; Translations: [Constipation, unspecified] 01-14-2023 Episodic Other nervous system disorders (3 sources) Paresthesia of lower extremity; Translations: [Anesthesia of skin] 01-14-2023 Episodic Comment on above: Pt states due to sci atic nerve Other upper respiratory infections (1 source) Chronic sinusitis, unspecified; Translations: [Chronic sinusitis, unspecified] Onset: 01-12-2025 Chronic Other upper respiratory infections (3 sources) Upper respiratory infection; Translations: [Acute upper respiratory infection, unspecified] 12-31-2024 Episodic Residual codes; unclassified (6 sources) Sleep apnea; Translations: [Sleep apnea, unspecified] Onset: 01-30-2025 01-14-2023 Chronic Rheumatoid arthritis and related disease (3 sources) Rheumatoid arthritis; Translations: [Rheumatoid arthritis, unspecified] 01-14-2023 Chronic Skin and subcutaneous tissue infections (1 source) Erysipelas; Translations: [Erysipelas] Episodic Unclassified (1 source) H/O: back problem; Translations: [History of back problems] 01-14-2023 Unclassified (1 source) M70.61 - Trochanteric bursitis, right hip,M70.62 - Trochanteric bursitis, left hip,M76.31 - Iliotibial band syndrome, right leg,M76.32 - Iliotibial band syndrome, left leg Unclassified (1 source) Low back pain, unspecified; Translations: [Low back pain, unspecified] Onset: 03-07-2025 Past or Other Problems Problem Classification Problem Date Documented Da te Episodic/Chronic Cardiac dysrhythmias (3 sources) Tachycardia; Translations: [Tachycardia, unspecified] Onset: 02-15-2024 01-30-2025 Episodic Gastrointestinal hemorrhage (6 sources) Hematochezia; Translations: [Melena] Onset: 01-30-2025 01-14-2023 Episodic Other screening for suspected conditions (not mental disorders or infectious disease) (9 sources) Patient encounter status; Translations: [Encounter for screening mammogram for malignant neoplasm of breast] Onset: 12-25-2024 Episodic Syncope (3 sources) Syncope and collapse; Translations: [Syncope and collapse] Onset: 09-07-2024 01-30-2025 Episodic Unclassified (2 sources) Patient encounter status 01-30-2025 Results Test Name Value Interpretation Reference Range Facility Bacteria Ur Culton Bacteria identified Cx Nom (U) ORGANISM ID: 1 10,000 -<50,000 CFU/ml Normal urogenital faustino Normal [facility] Comment on above: Performed By: #### 6 30-4 #### [facility] CLIA [id number] [address] [place] [address] OF [facility] CNOVon 07-18-2025 CNOV Office Visit ([facility]) ADELINE PRATER ([id number]) 1970 F Date Time Provider Department 07/18/25 6:00 PM YIFAN HILL During your visit today, we recorded the following information about you: Temperature Pulse Respiration Blood pressure 97.5 degrees 75/minute 20/minute 120/90 Weight 95.8 kg Yifan Hill MD 07/18/2025 6:33 PM Signed [facility] Subjective Adeline Prater is a 55 year old female. Patient presents with: Urinary Problem: Possible uti, blood in urine, frequency x 2 weeks Patient presents with 2 weeks of urinary symptoms. She was evaluated by gynecology 07/04/2025. She tested negative for BV, yeast, and trichomonas. Urine culture grew E. coli sensitive to the Bactrim prescribed. Patient's had return of symptoms including urinary frequency with little production, pelvic pressure, dysuria, hematuria, cloudy urine with odor. Denies personal or family history of kidney stones. Review of Systems Objective BP 120/90 Pulse 75 Temp 36.4 ?C (97.5 ?F) Resp 20 Wt 95.8 kg (211 lb 3.2 oz) LMP 09/07/2013 SpO2 99% BMI 34.19 kg/m? Physical Exam Constitutional: General: She is not in acute distress. HENT: Mouth/Throat: Mouth: Mucous membranes are moist. Eyes: Extraocular Movements: Extraocular movements intact. Conjunctiva/sclera: Conjunctivae normal. Pupils: Pupils are equal, round, and reactive to light. Cardiovascular: Rate and Rhythm: Normal rate and regular rhythm. Heart sounds: No murmur heard. Pulmonary: Effort: No respiratory distress. Breath sounds: No wheezing, rhonchi or rales. Abdominal: Palpations: There is no mass. Tenderness: There is no abdominal tenderness (Mid abdominal discomfort with palpation). There is no right CVA tenderness or left CVA tenderness. Musculoskeletal: Cervical back: Neck supple. Neurological: Mental Status: She is alert. {ASSESSMENT/PLAN: 1. Hematuria, unspecified type - ICD9: 599.70, ICD10: R31.9 - UA DIP, URINE (POC) -trace blood and small leukocyte esterase. - BACTERIAL CULTURE, URINE - SULFAMETHOXAZOLE 800 MG-TRIMETHOPRIM 160 MG TABLET x 7 days for recurrent UTI. Advised follow-up for blood in the urine with PCP or [facility] if culture is negative. Yifan Hill MD Differential Diagnoses - Urinary tract infection is more likely for the following reason(s): suggested by HANDP and consistent with laboratory studies - Renal calculus is less likely for the following reason(s): No history of condition - Hematuria differential Procedures Allergies As of Date: 07/18/2025 Noted Allergy Reaction IODINATED CONTRAST MEDIA 02/13/2019 14 - Other: See Comments Comments: Pt's mother had anaphylaxis with this dye so pt wanted this listed for herself SEASONAL ALLERGIES 02/13/2019 14 - Other: See Comments Comments: Coughing sneezing THEODUR (THEOPHYLLINE) 09/15/2021 14 - Other: See Comments Comments: palpitations Date Reviewed: 07/18/2025 Reviewed by: Hilary Loera MA - Fully Assessed Reason for Visit: Urinary Problem [252] Cmt: Possible uti, blood in urine, frequency x 2 weeks Primary Visit Diagnosis:Hematuria, unspecified type [R31.9] Order(s):UA DIP, URINE (POC) [[id number]] Order #: [id number]. #:[id number] BACTERIAL CULTURE, URINE [SQURCUL] Order #: [id number]. #:[id number] sulfamethoxazole-tri methoprim (BACTRIM DS) 800-160 mg per tabletTake 1 tablet by mouth two times a day for 7 days.Disp: 14 tabletRfl: 0 Prescriptions as of 07/18/2025 - sulfamethoxazole-tri methoprim (BACTRIM DS) 800-160 mg per tablet Take 1 tablet by mouth two times a day for 7 days. - phenazopyridine (PYRIDIUM) 200 mg tablet Take 1 tablet by mouth three times a day as needed for pain for up to 6 doses. - ipratropium bromide (ATROVENT) 42 mcg (0.06 %) nasal spray Use 2 Sprays in the nose three times a day. - multivitamin tablet Take 1 tablet by mouth once daily. - Cholecalciferol, Vitamin D3, 25 mcg (1,000 unit) cap Take 1,000 Units by mouth once daily. - cetirizine (ZYRTEC) 10 mg tablet Take 10 mg by mouth once daily. - psyllium husk (METAMUCIL ORAL) Take 1 Dose by mouth once daily. Problem List As Of Date 07/18/2025 Noted Resolved Tachycardia, unspecified [R00.0] 02/15/2024 Arthritis [M19.90] 01/30/2025 Hematochezia [K92.1] 01/30/2025 Sleep apnea [G47.30] 01/30/2025 Syncope and collapse [R55] 09/07/2024 Prescriptions ordered this encounter Disp Refills Start End SULFAMETHOXAZOLE 800 MG-TRIMETHOPRIM* 14 t* 0 07/18/2025 07/25/2025 Route: PO Sig: Take 1 tablet by mouth two times a day for 7 days. LOS History for Encounter ------- Level of Service: OFFICE/OUTPATIENT [facility] MDM 30 MINUTES[23260] Date AND Time: 07-18-2025 6:30 PM Recorded by User: YIFAN HILL Encounter Status:Closed b (more content not included)... Normal [facility] UA DIP, URINE (POC)on 2024 BILIRUBIN UA (POCT) Negative Negative [facility] CLARITY [facility] (POCT) [facility] COLOR UA (POCT) Light yellow [facility] GLUCOSE UA (POCT) Negative Negative mg/dL [facility] Hemoglobin Ql (U) Trace-intact Abnormal Negative [facility] Interpretation and review of laboratory results Abnormal [facility] KETONE UA (POCT) Negative Negative mg/dL [facility] LEUKOCYTES UA (POCT) Small Abnormal Negative [facility] NITRITE UA (POCT) Negative Negative [facility] PH UA (POCT) 6.0 4.5 - 8.0 [facility] Protein Ql (U) Negative Negative mg/dL [facility] SPECIFIC GRAVITY UA (POCT) 1.010 1.005 - 1.030 [facility] UROBILINOGEN UA (POCT) 0.2 Teresa l E.U./dL [facility] Location:[address], [address] [place] [address] POINT OF CARE [facility] BACTERIAL VAGINOSIS NAATon 0 07-04-2025 Lactobacillus crispatus+gasseri+dotson ii + Gardnerella vaginalis + Atopobium vaginae rRNA HOLLIS+probe Ql (Vag fld) Not detected Normal Not detected [facility] Comment on above: Order Comment: Speci men Type: SWAB Ordering Facility: [facility] Address: [address] [place] [address] Performed By: #### BRISSA JON #### [facility] CLIA [id number] [address] [place] [address] [place] [address] [place] Bacteria Ur Culton 5 Bacteria identified Cx Nom (U) ORGANISM ID: 1 10,000 -<50,000 CFU/ml Escherichia coli ORGANISM ID: 2 <10,000 CFU/ml Normal urogenital faustino ORGANISM ID: 1 (ESCHERICHIA COLI) ANTIBIOTIC INTERPRETATION TRENT STATUS REFERENCE RANGE Ampicillin S 4 F Susceptible <=8 , Intermediate >8 , Resistant >16 Cefazolin S <=4 F Susceptible 0-16 , Intermediate <0 or >16 , Resistant >16 For uncomplicated urinary tract infections, cefazolin results can be used to predict susceptibility or resistance to cephalexin. Ceftriaxone S <=1 F Susceptible <=1 , Intermediate >1 , Resistant >=4 Cefepime S <=1 F Susceptible <=2 , Susceptible-Dose Dependent >2 , Resistant >=16 Ertapenem S <=0.5 F Susceptible <=0.5 , Intermediate >.5 , Resistant >1 Meropenem S <=0.25 F Susceptible <=1 , Intermediate >1 , Resistant >2 Ampicillin/Sulbact S <=2 F Susceptible <=8 , Intermediate >8 , Resistant >16 Piperacillin/Tazobac S <=4 F Susceptible <16 , Susceptible-Dose Dependent >=16 , Resistant >=32 Gentamicin S <=1 F Susceptible <=2 , Intermediate >2 , Resistant >=8 Tobramycin S <=1 F Susceptible <4 , Intermediate >=4 , Resistant >=8 Trimeth sulfameth S <=20 F Susceptible <=40 , Resistant >40 Ciprofloxacin S <=0.25 F Susceptible <0.5 , Intermediate >=.5 , Resistant >=1 Nitrofurantoin S 32 F Susceptible <=32 , Intermediate >32 , Resistant >64 Abnormal [facility] Comment on above: Performed By: #### 6 30-4 #### [facility] CLIA [id number] [address] [place] [address] [place] PAGE/TRICHOMONAS NAATon 0 07-04-2025 C. glabrata RNA HOLLIS+probe Ql (Vag fld) Not detected Normal Not detected [facility] Comment on above: Order Comment: Speci men Type: SWAB Ordering Facility: [facility] Address: [address] [place] [address] Performed By: #### B KIRILL, CVTV #### [facility] CLIA [id number] [address] [place] [address] [place] Page sp DNA HOLLIS+probe Ql (Vag fld) Not detected Normal Not detected [facility] Comment on above: Order Comment: Speci men Type: SWAB Ordering Facility: [facility] Address: [address] [place] [address] Result Comment: The Page species group target includes C. albicans, C. tropicalis, C. parapsilosis, and C. dubliniensis. Performed By: #### Ronn ROY, CVTV #### [facility] CLIA [id number] [address] [place] [address] [place] T. vaginalis DNA HOLLIS+probe Ql (Unsp spec) Not detected Normal Not detected [facility] Comment on above: Order Comment: Speci men Type: SWAB Ordering Facility: [facility] Address: [address] [place] [address] Performed By: #### Ronn VAMP, CVTV #### [facility] CLIA [id number] [address] [place] [address] [place] CNOVon 07-04-2025 CNOV Office Visit (OBGYWM) VESTAADELINE Madison ([id number]) 1970 F Date Time Provider Department 07/04/25 11:40 AM RACHEL LEY OBGYWFaith During your visit today, we recorded the following information about you: Blood pressure Weight 126/72 94.3 kg Rachel Ley MD 07/04/2025 12:05 PM Signed Obstetrics and Gynecology [place] [facility] Visit Subjective Recording using Lucibel software for draft documentation of the visit was discussed with the patient/authorized escrow representative; all questions welcomed and answered. Patient/authorized escrow representative agreed to proceed CHIEF COMPLAINT: The patient is a 55-year-old female presenting with symptoms suggestive of a urinary tract infection (UTI). HPI: Urinary Symptoms - Reports noticing blood in her urine, which prompted concern. - Experiences a constant urge to urinate, particularly in the evening, with minimal urine output. - Describes a slight stinging sensation during urination but denies significant pain. - Denies any back pain, chills, or fever. - Has not taken any wuky-dxf-ilvsspo medications like Azo but has started drinking cranberry juice. - Recently began using a new body wash, which may have altered her vaginal pH. Vaginal Symptoms - Reports a fishy odor similar to when she was menstruating, but denies itching or burning. - Unsure if the odor is from the vagina or urine. - Denies any vaginal discharge - Sexually active, denies any pain or bleeding with intercourse. - No new sexual partners and no concerns for STDs. 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 Contraception: No contraception data on record PAST MEDICAL HISTORY Diagnosis Date Arthritis Asthma mild Snoring PAST SURGICAL HISTORY Procedure Laterality Date COLONOSCOPY 02/23/2019 EXTRACTION, ERUPTED TOOTH OR EXPOSED ROOT (ELEVATION AND/OR FORCEPS REMOVAL) TONSILLECTOMY HX FAMILY HISTORY Problem Relation Age of Onset Diabetes Mother Heart Mother Skin Cancer Mother melanoma Heart Father Prostate Cancer Father Parkinson's Father Social History Tobacco Use Smoking status: Never Smokeless tobacco: Never Vaping Use Vaping status: Never Used Substance Use Topics Alcohol use: No Drug use: No Current Outpatient Medications Medication Sig ipratropium bromide (ATROVENT) 42 mcg (0.06 %) nasal spray Use 2 Sprays in the nose three times a day. multivitamin tablet Take 1 tablet by mouth once daily. Cholecalciferol, Vitamin D3, 25 mcg (1,000 unit) cap Take 1,000 Units by mouth once daily. cetirizine (ZYRTEC) 10 mg tablet Take 10 mg by mouth once daily. psyllium husk (METAMUCIL ORAL) Take 1 Dose by mouth once daily. sulfamethoxazole-tri methoprim (BACTRIM DS) 800-160 mg per tablet Take 1 tablet by mouth two times a day for 3 days. phenazopyridine (PYRIDIUM) 200 mg tablet Take 1 tablet by mouth three times a day as needed for pain for up to 6 doses. No current facility-administere d medications for this visit. ALLERGIES Allergen Reactions Iodinated Contrast * Other: See Comments Pt's mother had anaphylaxis with this dye so pt wanted this listed for herself Seasonal Allergies Other: See Comments Coughing sneezing Theodur [Theophylli* Other: See Comments palpitations REVIEW OF SYSTEMS: Constitutional: (+) fatigue, (-) chills Genitourinary: (+) hematuria, (+) urinary frequency, (+) dysuria, (+) vaginal odor, (-) flank pain, (-) vaginal pruritus, (-) vaginal burning, (-) dyspareunia, (-) vaginal bleeding Objective SENSITIVE EXAM: The sensitive examination was discussed with the Patient or Patient's Authorized Rx Specialist. As applicable, any other physician, advance practice provider, medical student, or other health professional student that will be observing or involved in the sensitive examination for educational or training purposes was discussed with the Patient or Authorized Rx Specialist. The Patient or Authorized Rx Specialist has agreed to proceed with the sensitive examination. (Sensitive examination includes inspection and/or palpation of the breasts, pelvis, prostate and anorectal regions). PHYSICAL EXAM: BP 126/72 Wt 208 lb (94.3kg) LMP 09/07/2013 GENERAL: Pleasant; no acute distress PULMONARY: normal inspiratory effort ABDOMEN: soft, non-tender, no masses : - PELVIC: external genitalia normal, normal Bartholin's glands, urethra, Lame Deer's glands, no vulvar lesions, no cervical lesions, good vaginal support, clear vaginal discharge, normal appearing perineal body and perianal region, - BIMANUAL: uterus normal size, shape and consistency, no (more content not included)... Normal [facility] PT D/C Summary (1)on 025 PT D/C Summary (1) [facility] Physical Therapy [facility] [address] [place] [address] / REHABILITATION SERVICES DISCHARGE SUMMARY MR#: [id number] Acct: [id number] Name: ADELINE PRATER Rep #: [id number] : 1970 55 From: Amor Collins PT, ATC Referring Dr.: Dr. Bruce Ferguson DO Status: R EG RCR Insurance: Ring SELF PAY INSURANCE Discharge Summary D/C summary: It has been my pleasure to treat ADELINE PRATER referred by Dr. Bruce Ferguson DO, with the diagnosis of B hip and knee pain for a total of 8 visit(s). Discharge Date: Please see the following information for a summary of their discharge status. Subjective Subjective: Pt reports all her relief has been temporary thus far Pain B hips: Pain Intensity (Out of 10): 2 Overall Improvement % Improvement: 0 Objective Objective/Function: B hip pain is 2/10 B hip IR ROM is WNL and equal bilaterally IT band flexibility has not really improved, but will continue to improve through HEP Pt is I with HEP Goals Goal 1:: Decrease B hip pain x 50% to aid with tolerating increased ambulation Goal Progress: Not Progressing Goal 2:: Increase B IT band flexibility to aid with decreasing B hip pain Goal Progress: Not Progressing Goal 3:: Increase B hip IR ROM x 1 grade to aid with decreasing hip pain Goal Progress: Progressing Goal 4:: I with HEP Goal Progress: Goal Met Plan Plan: Discontinue secondary to lack of improvement. Return to doctor D/C Information d/c sentence: If there are questions or concerns regarding this patient's physical therapy, please feel free to call me at [phone]. Thank you for the referral of this patient. Sincerely, Amor Collins PT, ATC Balance/Gait/Functio nal tests Balance/Special Test Scores Lower Extremity Functional Score: 29 Improvement % Improvement: 0 05/03/25 1834 CC: Dr. Rajan Olsen MD; Dr. Bruce Ferguson DO [facility] Signed Normal [facility] Inital Evaluation (1) - PTon 03-21-2025 Inital Evaluation (1) - PT [facility] Physical Therapy [facility] [address] [place] [address] / REHABILITATION SERVICES INITIAL EVALUATION MR#: [id number] Acct: [id number] Name: ADELINE PRATER Rep #: [id number] : 1970 55 From: Amor Collins PT, ATC Referring Dr.: Dr. Bruce Ferguson DO Status: R EG RCR Insurance: Ring SELF PAY INSURANCE Patient's Visit Information Visit Information Visit Information: ADELINE PRATER is a 55 year old F referred to Physical Therapy by Dr. Bruce Ferguson DO with a diagnosis of B hip and knee pain. Date of Evaluation: 03/21/25 Physical Therapist: Amor Collins PT, ATC Visit Plan Frequency: 2x /Week Duration: 4-6 Weeks Plan: B IT band and piriformis stretching, stick rollout, core strengthening, and HEP Subjective Subjective: Pt reports she has had B lateral leg pain for greater than 10 years. Pt reports she has had several episodes of PT over that time span that always makes her stronger, but never fixes the problem. Pt reports she has recently received cortisone injections into her hips near the bursa regions. Pt notes she has developed knee and LBP over the years secondary to the many compensating patterns she uses secondary to her hip pain. Pt notes she has had xrays on her hips which reveal she is bone on bone. Pt also notes she has been told by one doctor that she has RA. Pt reports she believes this pain has lasted as long as it has secondary to her caring for her children over this time span while she put her needs on hold. Pt notes occasional tingling and numbness in her feet, but no other B LE radiculpathy is present at this time. Pt notes she has intermittent LBP, but none now. Pt notes occasional sleep difficulty secondary to pain. Pt reports she used to exercise a lot and is unable to at this time. Pt also notes she is limited with all yard work at this time. 0/10 pain at rest, 8/10 pain at worst Pain B hips: Pain Intensity (Out of 10): 0 Pain Intensity Range: 8 Objective Objective: Neuro: B LE sensation is WNL to light touch. B patellar reflex= 1/3 Palpation: Pt is very sore along B trochanters. Pt also notes pain along the glute medius regions MMT: R hip flex= 15, abd= 37, add= 27 #F; L hip flex= 10, abd= 31, add= 40#F ROM: B hips are severely limited with IR. All other motions are WFL when compared bilaterally Special tests: Pos piriformis test. 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 For Medicare and Medicare HMO plans, please review the plan of care and approve it. It will need to be FAXED BACK to us at [phone] for Medicare purposes. For Medicare only, by signing this I certify the plan of care. Please let me know if there are questions or concerns regarding this plan of care. Physician Signature: D ate: 03/21/25 0902 CC: Dr. Rajan Olsen MD; Dr. Bruce Ferguson DO [facility] Signed Normal [facility] Lumbar Spine 2 or 3 Viewson 03-07-2025 Lumbar Spine [address] [facility] [address] [place] [address] Lumbar Spine 2 or 3 Views MR#: [id number] Acct: [id number] Name: ADELINE PRATER Rep #: [id number] : 1970 F 54 From: Thao Henley MD PCP: Dr. Rajan Olsen MD Status: DEP AMB Study: Lumbar Spine 2 or 3 Views Date of Exam: Exam# [id number] Ordering Dr: Bruce Ferguson DO PROCEDURE: LUMBAR SPINE 2 OR 3 VIEWS 03/07/2025 REASON FOR EXAM: LOW BACK PAIN, RADIATES TO BOTH HIPS TECHNIQUE: 2 view(s) of the lumbar spine COMPARISON: None available FINDINGS: Vertebrae: Vertebral body heights are well preserved. Discs: The intervertebral disc heights are well preserved. Alignment: Unremarkable Other: Mild facet arthropathy within the lower lumbar spine. RAD/Lumbar Spine 2 or 3 Views IMPRESSION: No acute fracture or traumatic malalignment. Mild degenerative changes within the lower lumbar spine. Reading Location: [id number] CC: Dr. Rajan Olsen MD; Dr. Bruce Ferguson DO Security Assessor: Signed Normal [facility] Orthopedic Visit Reporton Orthopedic Visit Report [facility] [address] [place] [address] OFFICE VISIT Date of Service: 03/07/25 MR#: [id number] Acct: [id number] Name: ADELINE PRATER Rep #: [id number] : 1970 Provider: Dr. Bruce chung DO Age/Sex: 54/F Location: [facility] Status: Signed Intake Vital Signs 12/31/24 12:15 03/07/25 08:35 Height 5 ft 7 in 5 ft 7 in Weight: 203 lb 6 oz 206 lb BMI 31.8 32.2 BP 122/86 H Position Sitting Pulse 81 Temp 98.2 F Temp Source Oral Pulse Oximetry (%) 99 Oxygen Delivery Method room air Intake Visit Reasons: BL HIPS Allergies Iodinated Contrast Media (contrast dye - iodinated) Adverse Reaction (Verified 03/07/25 08:37) PT UNABLE TO RESPOND-NEEDS F/U Medications ???Medication ???Instructions ???Recorded ???Confirmed ???Type cholecalciferol (vitamin D3) 50 50 mcg PO DAILY 01/14/23 03/07/25 History mcg (2,000 unit) capsule multivitamin 1 tab PO DAILY 01/14/23 03/07/25 H istory cetirizine 10 mg capsule (Zyrtec) 10 mg PO QDAY PRN 12/31/24 History etodolac 500 mg tablet 500 mg PO BID #60 tabs 03/07/25 Rx PFSH Surgical History History of tonsillectomy History of hemorrhoidectomy Family History Grandmother Colon cancer Heart disease Hypertension CVA (cerebral vascular accident) Grandfather Heart disease Hypertension CVA (cerebral vascular accident) Father Diabetes Heart disease Hypertension Mother Cancer melanoma Diabetes Heart disease Hypertension Social History Smoking Status: Never smoker alcohol intake: never substance use type: does not use HPI BL HIPS Details: This documentation accurately reflects the service provided and the decisions made by me, Dr. Bruce Ferguson, 03/07/25 0754. Part of today???s visit was documented by Fior SOSA, acting as scribe. ADELINE PRATER is a 54 year old F with a medical history significant for but not limited to rheumatoid arthritis, here today for bilateral hip pain. She states that her pain started with the right hip then gradually the left hip also started causing her pain. She feels like her gait is off. she states that she has been having pain for over a decade but hasn't been able to find any help. She has seen multiple doctors and has done PT in the past. The last time she did PT was about 4 years ago. The PT did help with her strength but not the pain. She does not take any medication for rheumatoid. She feels that her right hip has more limited range of motion than her left hip. She has been told that in one of her hips she has a bone spur. She feel that her pain is over mostly the lateral sides . She denies having groin or medial thigh pain. She does have low back pain that started after her hips. Her pain is increase after ambulating for long periods of time. Patient takes Advil for pain. She denies previous injury or surgery. She denies injections. She does occasionally get sciatic pain but not very often. It is tender for her to lay on either hip at times. For the rheumatoid arthritis she was told by Dr. Kiran that she has rheumatoid and put on her medication that was helping then she saw a doctor at [facility] who was unsure if she really had it or not. Ortho Exam General General: Yes no acute distress (Appears depressed) and Yes well groomed Neurologic: Yes alert and Yes oriented x3 Psychologic: Yes reasonable and appropriate Right Hip Skin: No Ecchymosis, No soft tissue swelling and No Erythema internal rotation @90 degree flexion: 10 degrees external rotation @90 degree extension: 15 degrees Impingement Test: 1 Labral Stress Test: 1 Special Tests: No iliopsoas snap, No IT band snap, Yes TTP Greater Troch, No RROM flexion pain, No C sign, No FADIR, No FADER and Yes Illiotibial band tenderness HIP: Tender to palpation over greater trochanteric bursa IT band tenderness No groin pain or crepitation with hip range of motion no pain resisted abduction No gross motor or sensory deficits Left Hip Skin/Wound: No Ecchymosis, No soft tissue swelling and No Erythema Hip: Present tender to palpate -; Absent eccymosis, soft tissue swelling or erythema internal rotation @90 degree flexion: 10 degrees external rotation @90 degree extension: 15 degrees Special Tests: Yes Illiotibial band tenderness; No iliopsoas snap, IT band snap or C sign HIP: tender over greater trochanteric bursa IT band tenderness No groin pain or crepitation with hip range of motion no pain resisted abduction No gross motor or sensory deficits Spine SPINE TESTING CERVICAL THORACIC LUMBAR Musculoskeletal Strength (more content not included)... Normal [facility] Hips B/L min 2 views w/ Pelv brittney 02-14-2025 Hips B/L min 2 views w/ Pelvis [facility] [address] [place] [address] Hips B/L min 2 views w/ Pelvis MR#: [id number] Acct: [id number] Name: ADELINE PRATER Rep #: [id number] : 1970 F 54 From: Clive Croft PCP: Dr. Rajan Olsen MD Status: REG CLI Study: Hips B/L min 2 views w/ Pelvis Date of Exam: 0 02/14/25 Exam# [id number] Ordering Dr: Rajan Olsen MD PROCEDURE: Pelvis and bilateral hip radiographs REASON FOR EXAM: OSTEOARTHRITIS TECHNIQUE: Five views of the pelvis and both hips COMPARISON: No recent priors FINDINGS: See impression RAD/Hips B/L min 2 views w/ Pelvis IMPRESSION: Bilateral hip osteoarthritis, severe on the right including near iwkl-xz-[id number] articulation, subchondral sclerosis and marginal osteophytes. Mild right hip osseous remodeling also noted. Negative for acute displaced fracture or dislocation. Reading Location: [facility] CC: Dr. 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 Adeline is a 54 year old who presents for an annual gynecologic exam without complaints. Postmenopausal: Yes- Hx of PMB HRT use: No. 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 Contraception: No contraception data on record PAST MEDICAL HISTORY Diagnosis Date Arthritis Asthma mild Snoring PAST SURGICAL HISTORY Procedure Laterality Date COLONOSCOPY 02/23/2019 EXTRACTION, ERUPTED TOOTH OR EXPOSED ROOT (ELEVATION AND/OR FORCEPS REMOVAL) TONSILLECTOMY HX FAMILY HISTORY Problem Relation Age of Onset Diabetes Mother Heart Mother Skin Cancer Mother melanoma Heart Father Prostate Cancer Father Parkinson's Father SOCIAL HISTORY Social History Tobacco Use Smoking status: Never Smokeless tobacco: Never Vaping Use Vaping status: Never Used Substance Use Topics Alcohol use: No Drug use: No REVIEW OF SYSTEMS Abdomen: No abdominal pain, nausea, vomiting, diarrhea, or constipation. No bloating, early satiety, indigestion, or increased flatulence. Bladder: No dysuria, gross hematuria, urinary frequency, urinary urgency, or incontinence Breast: No breast lumps, nipple d/c, overlying skin changes, redness or skin retraction Allergies and current medication updated:Yes SENSITIVE EXAM: The sensitive examination was discussed with the Patient or Patient's Authorized Rx Specialist. As applicable, any other physician, advance practice provider, medical student, or other health professional student that will be observing or involved in the sensitive examination for educational or training purposes was discussed with the Patient or Authorized Rx Specialist. The Patient or Authorized Rx Specialist has agreed to proceed with the sensitive examination. (Sensitive examination includes inspection and/or palpation of the breasts, pelvis, prostate and anorectal regions). EXAM: BP 124/68 Ht 5' 5.906 (1.67m) Wt 202 lb 3.2 oz (91.7kg) LMP 09/07/2013 BMI 32.73 kg/(m2). GENERAL: pleasant, female in no apparent distress HEENT: Normocephalic, atraumatic, mucus membranes moist, and no lesions DERMATOLOGY: Normal, without lesions, non-icteric, and non-hirsute BREAST: soft, non-tender, symmetric, no dominant mass, normal nipple-areolar complex, no lymphadenopathy, and no nipple discharge CHEST: Normal inspiratory effort ABDOMEN: soft, non-tender, and no masses PELVIC: external genitalia normal, normal Bartholin's glands, urethra, L[place] Deer's glands, no vulvar lesions, no cervical lesions, physiologic discharge present, normal appearing perineal body and perianal region BIMANUAL: uterus normal size, shape and consistency, no adnexal masses, and non-tender RECTOVAGINAL: deferred. NEURO: alert and oriented x3,exam grossly non-focal EXTREMITIES: normal ASSESSMENT/PLAN: 1) Health maintenance: Pap done with HPV. Mammogram ordered Mammogram up to date Nutrition, exercise and routine health maintenance exams reviewed. Calcium/Vitamin D supplementation information provided. Colon cancer screening: up to date with screening 2) Follow up one year or sooner as needed Na Kwan APRN.POLYSOMNOGRAPHIC TECH Referring Provider: NA KWAN [[id number]] Allergies As of Date: 01/30/2025 Noted Allergy Reaction IODINATED CONTRAST MEDIA 02/13/2019 14 - Other: See Comments Comments: Pt's mother had anaphylaxis with this dye so pt wanted this listed for herself SEASONAL ALLERGIES 02/13/2019 14 - Other: See Comments Comments: Coughing sneezing THEODUR (THEOPHYLLINE) 09/15/2021 14 - Other: See Comments Comments: palpitations Date Reviewed: 01/30/2025 Reviewed by: Na Kwan APRN.POLYSOMNOGRAPHIC TECH - Fully Assessed Reason for Visit: Well Woman [1463] Primary Visit Diagnosis:Encounter for gynecological examination (general) (routine) without abnormal findings [Z01.419] Other Visit Diagnoses:Encounter for screening for human papillomavirus (HPV) [Z11.51] Pap smear for cervical cancer screening [Z12.4] Encounter for screening mammogram for breast cancer [Z12.31] (more content not included)... Normal [facility] HIGH RISK HUMAN PAPILLOMA LACI (HPV), PCR FOR DETECTION AND GENOTYPINGon 01-30-2025 HPV 16 Ag Ql (Unsp spec) Not detected Normal Not detec [facility] Comment on above: Order Comment: Speci men Type: FLUID SPECIMEN Ordering Facility: [facility] Address: [address] [place] [address] Performed By: #### H PVHRT #### [facility] CLIA [id number] [address] [place] [address] [place] HPV 18 Ag Ql (Unsp spec) Not detected Normal Not detec [facility] Comment on above: Order Comment: Speci men Type: FLUID SPECIMEN Ordering Facility: [facility] Address: [address] [place] [address] Performed By: #### H PVHRT #### [facility] CLIA [id number] [address] [place] [address] [place] HPV 31+33+35+39+45+51+52+56+ 58+59+66+68 DNA HOLLIS+probe Ql (Cvx) Not detected Normal Not detected [facility] Comment on above: Order Comment: Speci men Type: FLUID SPECIMEN Ordering Facility: [facility] Address: [address] [place] [address] Result Comment: High Risk HPV Other Type includes HPV types 31, 33, 35, 39, 45, 51, 52, 56, 58, 59, 66 and 68. Performed By: #### H PVHRT #### [facility] CLIA [id number] [address] [place] [address] [place] PAP TESTon 01-30-2025 ADEQUACY Normal [facility] Comment on above: Order Comment: Speci men Type: FLUID SPECIMEN Ordering Facility: [facility] Address: [address] [place] [address] Result Comment: Sati sfactory for interpretation. Excess blood Limited cellularity due to atrophy related background changes Performed By: #### L [id number] #### [facility] CLIA [id number] [address] [place] [address] [place] CASE REPORT Normal [facility] Comment on above: Order Comment: Speci men Type: FLUID SPECIMEN Ordering Facility: [facility] Address: [address] [place] [address] Result Comment: Gyne cologic Cytology Report Case: [id number] Authorizing Provider: Na Kwan APRN.POLYSOMNOGRAPHIC TECH Collected: 01/30/2025 07:32 AM Ordering Location: OB/Gynecology Received: 01/30/2025 11:46 AM First Screen: Clapacs, Aylin Specimen: Pap Test, ThinPrep, Cervix Performed By: #### L [id number] #### [facility] [place] [facility] CLIA [id number] [address] [place] [address] [place] CLINICAL HISTORY, CYTOLOGY, ADMINISTRATOR HEALTH CARE FACILITY Routine Exam Normal [facility] Comment on above: Order Comment: Speci men Type: FLUID SPECIMEN Ordering Facility: [facility] Address: [address] [place] [address] Performed By: #### L [id number] #### [facility] [place] [facility] CLIA [id number] [address] [place] [address] [place] FINAL PERFORMING LAB Normal [facility] Comment on above: Order Comment: Speci men Type: FLUID SPECIMEN Ordering Facility: [facility] Address: [address] [place] [address] Result Comment: Tech nical component, concrete fence builder screening performed at [facility], [address] [place], [place] [address] CLIA# [id number] Diagnostic interpretation performed at [facility], [address] [place] [address] [place] [address] CLIA# [id number] Slitting [employer] Shipping Supervisor: José Miguel Finnegan M.D. Performed By: #### L [id number] #### [facility] [place] [facility] CLIA [id number] [address] [place] [address] [place] GROSS DESCRIPTION A. Cervix Normal [facility] Comment on above: Order Comment: Speci men Type: FLUID SPECIMEN Ordering Facility: [facility] Address: [address] [place] [address] Result Comment: Glac ial Acetic Acid added. Performed By: #### L [id number] #### [facility] [place] [facility] CLIA [id number] [address] [place] [address] [place] INTERPRETATION, CYTOLOGY, ADMINISTRATOR [facility] FACILITY Normal [facility] Comment on above: Order Comment: Speci men Type: FLUID SPECIMEN Ordering Facility: [facility] Address: [address] [place] [address] Result Comment: Nega tive for intraepithelial lesion or malignancy. at 1509 EDT Performed By: #### L [id number] #### [facility] [place] [facility] CLIA [id number] [address] [place] [address] [place] LMP 09/07/2013 Normal [facility] Comment on above: Order Comment: Speci men Type: FLUID SPECIMEN Ordering Facility: [facility] Address: [address] [place] [address] Performed By: #### L [id number] #### [facility] [facility] CLIA [id number] [address] [place] [address] [place] PAP DISCLAIMER COMMENT The Pap Smear is a screening test for cervical cancer. False negative results occur with all screening tests, emphasizing the need for rescreening at recommended intervals, and clinical correlation. Normal [facility] Comment on above: Order Comment: Speci men Type: FLUID SPECIMEN Ordering Facility: [facility] Address: [address] [place] [address] Performed By: #### L [id number] #### [facility] [place] [facility] CLIA [id number] [address] [place] [address] [place] PAP ORDER BUILDER COMMENT This specimen has been analyzed by the ThinPrep Imaging System, an automated imaging and review system, which assists the laboratory in evaluating cells on ThinPrep Pap tests. Following automated imaging, selected krishnamurthy from every slide are reviewed by a concrete fence builder. Normal [facility] Comment on above: Order Comment: Speci men Type: FLUID SPECIMEN Ordering Facility: [facility] Address: [address] [place] [address] Performed By: #### L [id number] #### [facility] [place] [facility] CLIA [id number] [address] [place] [address] [place] Urgent Care Visit Reporton 0 12-31-2024 Urgent Care Visit Report [facility] [address], [address] [place] [address] OFFICE VISIT Date of Service: 12/31/24 MR#: [id number] Acct: [id number] Name: ADELINE PRATER Rep #: [id number] : 1970 Provider: JOSUE Brown Age/Sex: 54/F Location: [facility] Status: Signed Intake Vital Signs 01/14/23 09:01 12/31/24 11:55 12/31/24 12:15 Height 5 ft 7 in 5 ft 7 in 5 ft 7 in Weight: 203 lb 6 oz BMI 31.8 BP 122/86 H Position Sitting Pulse 81 Temp 98.2 F Temp Source Oral Pulse Oximetry (%) 99 Oxygen Delivery Method room air Intake Visit Reasons: SORE THROAT Allergies Iodinated Contrast Media (contrast dye - iodinated) Adverse Reaction (Verified 12/31/24 12:14) PT UNABLE TO RESPOND-NEEDS F/U Medications ???Medication ???Instructions ???Recorded ???Confirmed ???Type cholecalciferol (vitamin D3) 50 50 mcg PO DAILY 01/14/23 01/28/23 History mcg (2,000 unit) capsule multivitamin 1 tab PO DAILY 01/14/23 01/28/23 H istory ubidecarenone-omega 3-vit E 25 1 cap PO DAILY 01/14/23 01/28/23 H istory mg-150 (90-60) mg-200 unit capsule (Co Y-86-Xupccjj E-Fish Oil) vitamin B complex (B 1 tab PO DAILY 01/14/23 01/28/23 H istory Complex-Vitamin B12 tablet) cetirizine 10 mg capsule (Zyrtec) 10 mg PO QDAY PRN 12/31/24 History Nurse's Note: Patient here for a sore throat. Patient was on a AB a couple weeks ago and she states the last couple night her throat has been sore and her looked at it and saw white back in her throat. [facility] Surgical History History of hemorrhoidectomy Family History (Updated 01/14/23 @ 09:01 by Matilda Wednesday) Grandmother Colon cancer Heart disease Hypertension CVA (cerebral vascular accident) Grandfather Heart disease Hypertension CVA (cerebral vascular accident) Father Diabetes Heart disease Hypertension Mother Cancer melanoma Diabetes Heart disease Hypertension Social History (Updated 01/14/23 @ 09:01 by Matilda Wednesday) Smoking Status: Never smoker alcohol intake: never substance use type: does not use HPI HPI Details: ADELINE PRATER, is a 54 F who presents to the office today for evaluation of sore throat and persistent cold symptoms. Patient notes that within the last several weeks she say her PCP who started her on antibiotics for a bug that was going around, she states she completed the antibiotic and has noticed minimal improvement of her symptoms since completion. Patient notes persistent sore throat and mild cough, she also noted white patches in the back of her throat last evening. 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 ROS Const Constitutional: No chills or fever(s) ENT ENT: Positive for nasal congestion, nasal discharge and sore throat; No ear or mastoid pain, ear discharge, sinus pressure, sinus pain or post nasal drip Resp Respiratory: Positive for cough; No chest congestion, excessive phlegm production, shortness of breath or wheezing Cardio Cardiology: No chest pain at rest, chest pain with exertion, dyspnea on exertion, irregular heart rhythm or palpitations Gastro GI: No abdominal pain, change in bowel habits, constipation, diarrhea, nausea/dyspepsia or vomiting Aller/Imm Allergy/Immunologic: No seasonal allergy symptoms or wheezing Exam Const General: cooperative and no acute distress HENMT Ears: external ears normal and TM's normal bilaterally Nose: nares normal, nasal mucous membranes and turbinates normal and no nasal discharge Face and sinus: sinuses nontender Mouth: oral mucosae normal Throat: posterior oropharynx normal Neck Lymphatic: no lymphadenopathy noted Resp Auscultation: Bilateral: Clear to Auscultation Cardio Rate: regular rate Rhythm: regular rhythm Heart Sounds: S1 normal and S2 normal Coding Level of Care Code New Pt Off vis,new,level 3 Patient Type New History Expanded Problem Focused Exam Problem Focused Medical Decision Making Low Complexity Diagnoses Viral upper respiratory tract infection J06.9 URI type: unspecified viral URI Assessment and Plan Assessment and Plan (1) URI (upper respiratory infection): Status: Acute Qualifiers: URI type: unspecified viral URI Qualified Code(s): J06.9 - Acute upper respiratory infection, unspecified Plan: Likely viral etiology based on normal exam in office and history. Continue conservative measures at this time and f/u with PCP or [facility] in the [facility] with worsening or persistent symptoms. Patient voiced understanding and agreement with plan. 12/31/24 1315 Date Deangelo Cook Signature: Date (more content not included)... Normal [facility] JONN SCREENING W TOMOon 12-25 JONN SCREENING W DAVID * * *Final Report* * * DATE OF EXAM: Dec 25 2024 8:24AM [id number] - JONN SCREENING W DAVID / PROCEDURE REASON: Encounter for screening mammogram for malignant neoplasm of breast * * * * Physician Interpretation * * * * RESULT: [place] [address] [place] [id number] #[id number] - [facility] SCREENING W DAVID HISTORY: Patient is 54 years old and is seen for screening and is asymptomatic in both breasts. Patient states no personal history of breast cancer. Patient states no personal history of other cancers. COMPARISON STUDIES: The present examination has been compared to prior imaging studies dated 02/13/2019 (mammogram), 05/13/2020 (mammogram) and 10/06/2022 (mammogram). MAMMOGRAM TECHNIQUE: The study was acquired using full field digital technology and interpreted from soft copy. Digital Breast Tomosynthesis (DBT) images were obtained and used to assist in the interpretation of this examination. MAMMOGRAM FINDINGS: There are scattered areas of fibroglandular density. No suspicious masses, calcifications or other abnormalities are seen in either breast. There are no significant interval changes. IMPRESSION: There is no mammographic evidence of malignancy in either breast. Routine screening mammogram is recommended. Annual mammogram will be due in 1 year. BI-RADS Category 1: Negative RISK: Based on the Tyrer-Cuzick (TC) risk assessment model, this patient has a 6.8% lifetime risk of developing breast cancer, meaning they are at average risk for developing breast cancer. However, this is only an estimate based on available history provided on the patient's questionnaire. We encourage all patients to talk with their providers about these results, further recommendations for managing breast health, and appropriate supplemental screening options if the patient has dense breast tissue. Interpreting Radiologist: Rosalinda Brooks M.D. Resident/Fellow: Rakesh Champagne D.O. Electronically signed on: 12/26/2024 Security Assessor: MICAELA [employer] Date/Time: Dec 25 2024 8:12A Dictated by: RAKESH CHAMPAGNE, DO This examination was interpreted and the report reviewed and electronically signed by: ROSALINDA BROOKS MD on Dec 26 2024 1:58PM EST [id number] Normal [facility] [id number] DOrdered By: Liborio Isaac on 12-22-2024 Vitamin D 25-Hydroxy 47.3 ng/mL [facility] Comment on above: Vitamin D 25(OH) Sta tus Range Deficiency <20 ng/mL (50nmol/L) Insufficiency 20 - 30 ng/mL (50 - 75 nmol/L) Sufficiency 30 - 100 ng/mL (75 - 250 nmol/L) Toxicity >100 ng/mL (>250 nmol/L) Absolute neutrophil countOrd ered By: Zahraa Isaac on 12-22-2024 Neutrophils (Bld) [#/Vol] 3.3 10*3/uL 2.0-7.7 [facility] Albumin to globulin ratioOrd ered By: Zahraa Isaac on 12-22-2024 Albumin/Globulin [Mass ratio] 0.9 {ratio} 0.9-2.4 [facility] Basophil percentageOrdered B y: Zahraa Isaac on 12-22-2024 Basophils/100 WBC (Bld) 1.5 % High 0-1 [facility] Bilirubin, totalOrdered By: Zahraa Isaac on 12-22-2024 Bilirubin [Mass/Vol] 0.30 mg/dL 0.20-1.00 [facility] Comment on above: For patients on eltr ombopag therapy, use of Dimension [place] TBIL is not recommended. Blood urea nitrogen (BUN)/cr eatinine ratioOrdered By: Zahraa Isaac on 12-22-2024 Urea nitrogen/Creatinine [Mass ratio] 20.2 mg/mg High 10-20 [facility] CBC W/Diff, Automatedon 11-30 Absolute Lymph 1.74 X10 3/uL Normal 0.83-4.51 [facility] Comment on above: Performed By: #### L 500.4050, L100.0100, L501.9520, L506.1000, L500.4100 #### [facility] [address] [place], [address] Absolute Neut 3.3 X10 3/uL Normal 2.0-7.7 [facility] Comment on above: Performed By: #### L 500.4050, L100.0100, L501.9520, L506.1000, L500.4100 #### [facility] [address] [place], [address] Basophils/100 WBC (Bld) 1.5 % High 0-1 [facility] Comment on above: Performed By: #### L 500.4050, L100.0100, L501.9520, L506.1000, L500.4100 #### [facility] [address] [place], [address] Eosinophils/100 WBC (Bld) 4.7 % Normal 0-5 [facility] Comment on above: Performed By: #### L 500.4050, L100.0100, L501.9520, L506.1000, L500.4100 #### [facility] [address] [place], [address] Erythrocyte distribution width (RBC) [Ratio] 11.7 % Normal 11.6-14.6 [facility] Comment on above: Performed By: #### L 500.4050, L100.0100, L501.9520, L506.1000, L500.4100 #### [facility] [address] [place], [address] Hematocrit (Bld) [Volume fraction] 41.8 % Normal 37-47 [facility] Comment on above: Performed By: #### L 500.4050, L100.0100, L501.9520, L506.1000, L500.4100 #### [facility] [address] [place], [address] Hemoglobin (Bld) [Mass/Vol] 13.5 g/dL Normal 12.0-15.0 [facility] Comment on above: Performed By: #### L 500.4050, L100.0100, L501.9520, L506.1000, L500.4100 #### [facility] [address] [place], [address] IG% 0.500 Normal 0.0-0.9 [facility] Comment on above: Result Comment: IG% - Immature Granulocytes (promyelocytes, myelocytes and metamyelocytes) > 1% indicates that a LEFT SHIFT is Present. Performed By: #### L 500.4050, L100.0100, L501.9520, L506.1000, L500.4100 #### [facility] [address] [place], [address] Lymphocytes/100 WBC (Bld) 29.3 % Normal 19-41 [facility] Comment on above: Performed By: #### L 500.4050, L100.0100, L501.9520, L506.1000, L500.4100 #### [facility] [address] [place], [address] MCH (RBC) [Entitic mass] 28.8 pg Normal 27.0-32.0 [facility] Comment on above: Performed By: #### L 500.4050, L100.0100, L501.9520, L506.1000, L500.4100 #### [facility] [address] [place], [address] MCHC (RBC) [Mass/Vol] 32.3 g/dL Normal 32-36 [facility] Comment on above: Performed By: #### L 500.4050, L100.0100, L501.9520, L506.1000, L500.4100 #### [facility] [address] [place], [address] MCV (RBC) [Entitic vol] 89.1 fL Normal 81-99 [facility] Comment on above: Performed By: #### L 500.4050, L100.0100, L501.9520, L506.1000, L500.4100 #### [facility] [address] [place], [address] Monocytes/100 WBC (Bld) 7.6 % Normal 0-10 [facility] Comment on above: Performed By: #### L 500.4050, L100.0100, L501.9520, L506.1000, L500.4100 #### [facility] [address] [place], [address] Neutrophils/100 WBC (Bld) 56.4 % Normal 47-70 [facility] Comment on above: Performed By: #### L 500.4050, L100.0100, L501.9520, L506.1000, L500.4100 #### [facility] [address] [place], [address] Nucleated RBC (Bld) [#/Vol] 0 10*3/uL Normal 0-5 [facility] Comment on above: Performed By: #### L 500.4050, L100.0100, L501.9520, L506.1000, L500.4100 #### [facility] [address] [place], [address] Platelet mean volume (Bld) [Entitic vol] 9.2 fL Normal 6.2-12.0 [facility] Comment on above: Performed By: #### L 500.4050, L100.0100, L501.9520, L506.1000, L500.4100 #### [facility] [address] [place], [address] Platelets (Bld) [#/Vol] 520 10*3/uL High 150-450 [facility] Comment on above: Performed By: #### L 500.4050, L100.0100, L501.9520, L506.1000, L500.4100 #### [facility] [address] [place], [address] RBC (Bld) [#/Vol] 4.69 10*6/uL Normal 4.2-5.4 [facility] Comment on above: Performed By: #### L 500.4050, L100.0100, L501.9520, L506.1000, L500.4100 #### [facility] [address] [place], [address] RDW SD 37.2 fl Normal 35.1-43.9 [facility] Comment on above: Performed By: #### L 500.4050, L100.0100, L501.9520, L506.1000, L500.4100 #### [facility] [address] [place], [address] WBC (Bld) [#/Vol] 5.9 10*3/uL Normal 4.4-11.0 [facility] Comment on above: Performed By: #### L 500.4050, L100.0100, L501.9520, L506.1000, L500.4100 #### [facility] [address] [place], [address] Carbon dioxide measurementOr dered By: Zahraa Isaac on 12-22-2024 CO2 [Moles/Vol] 26.0 mmol/L 21.0-32.0 [facility] Chloride measurementOrdered By: Zahraa Isaac on 12-22-2024 Chloride [Moles/Vol] 105 mmol/L 98-107 [facility] Comprehensive Metabolic Prof ilon 12-22-2024 Albumin [Mass/Vol] 3.7 g/dL Normal 3.2-5.0 [facility] Comment on above: Performed By: #### L 500.4050, L100.0100, L501.9520, L506.1000, L500.4100 #### [facility] [address] [place], [address] Albumin/Globulin [Mass ratio] 0.9 {ratio} Normal 0.9-2.4 [facility] Comment on above: Performed By: #### L 500.4050, L100.0100, L501.9520, L506.1000, L500.4100 #### [facility] [address] [place], [address] ALK P 114 U/L Normal 45-117 [facility] Comment on above: Performed By: #### L 500.4050, L100.0100, L501.9520, L506.1000, L500.4100 #### [facility] [address] [place], [address] ALT [Catalytic activity/Vol] 25 U/L Normal 13-56 [facility] Comment on above: Performed By: #### L 500.4050, L100.0100, L501.9520, L506.1000, L500.4100 #### [facility] [address] [place], [address] AST [Catalytic activity/Vol] 19 U/L Normal 15-37 [facility] Comment on above: Performed By: #### L 500.4050, L100.0100, L501.9520, L506.1000, L500.4100 #### [facility] [address] [place], [address] Bilirubin [Mass/Vol] 0.30 mg/dL Normal 0.20-1.00 [facility] Comment on above: Result Comment: For patients on eltrombopag therapy, use of Dimension [place] TBIL is not recommended. Performed By: #### L 500.4050, L100.0100, L501.9520, L506.1000, L500.4100 #### [facility] [address] [place], [address] BUN/CRE 20.2 RATIO High 10-20 [facility] Comment on above: Performed By: #### L 500.4050, L100.0100, L501.9520, L506.1000, L500.4100 #### [facility] [address] [place], [address] CA,Total 9.6 mg/dL Normal 8.5-10.1 [facility] Comment on above: Performed By: #### L 500.4050, L100.0100, L501.9520, L506.1000, L500.4100 #### [facility] [address] [place], [address] Chloride [Moles/Vol] 105 mmol/L Normal 98-107 [facility] Comment on above: Performed By: #### L 500.4050, L100.0100, L501.9520, L506.1000, L500.4100 #### [facility] [address] [place], [address] CO2 [Moles/Vol] 26.0 mmol/L Normal 21.0-32.0 [facility] Comment on above: Performed By: #### L 500.4050, L100.0100, L501.9520, L506.1000, L500.4100 #### [facility] [address] [place], [address] Creatinine [Mass/Vol] 0.74 mg/dL Normal 0.55-1.02 [facility] Comment on above: Result Comment: The validity of the calculated GFR GFRAA in patients over 70 years has not been determined. Clinical correlation is essential. Performed By: #### L 500.4050, L100.0100, L501.9520, L506.1000, L500.4100 #### [facility] [address] [place], [address] EST GFR - AA 104 mL/min Normal >60 [facility] Comment on above: Result Comment: Afri can Haitian GFR Calc Performed By: #### L 500.4050, L100.0100, L501.9520, L506.1000, L500.4100 #### [facility] [address] [place], [address] GAP 8 Normal 5-15 [facility] Comment on above: Performed By: #### L 500.4050, L100.0100, L501.9520, L506.1000, L500.4100 #### [facility] [address] [place], [address] GFR/1.73 sq M.predicted among non-blacks MDRD (S/P/Bld) [Vol rate/Area] 86 mL/min/{1.73_m2} Normal >60 [facility] Comment on above: Result Comment: Non- GFR Calc Performed By: #### L 500.4050, L100.0100, L501.9520, L506.1000, L500.4100 #### [facility] [address] [place], [address] Globulin (S) [Mass/Vol] 3.9 g/dL Normal 2.2-4.2 [facility] Comment on above: Performed By: #### L 500.4050, L100.0100, L501.9520, L506.1000, L500.4100 #### [facility] [address] [place], [address] Glucose [Mass/Vol] 90 mg/dL Normal 74-106 [facility] Comment on above: Performed By: #### L 500.4050, L100.0100, L501.9520, L506.1000, L500.4100 #### [facility] [address] [place], [address] Potassium [Moles/Vol] 3.9 mmol/L Normal 3.5-5.1 [facility] Comment on above: Performed By: #### L 500.4050, L100.0100, L501.9520, L506.1000, L500.4100 #### [facility] [address] [place], [address] Sodium [Moles/Vol] 139 mmol/L Normal 136-145 [facility] Comment on above: Performed By: #### L 500.4050, L100.0100, L501.9520, L506.1000, L500.4100 #### [facility] [address] [place], [address] T PROT 7.6 g/dL Normal 6.4-8.2 [facility] Comment on above: Performed By: #### L 500.4050, L100.0100, L501.9520, L506.1000, L500.4100 #### [facility] [address] [place], [address] Urea nitrogen [Mass/Vol] 15 mg/dL Normal 7-18 [facility] Comment on above: Performed By: #### L 500.4050, L100.0100, L501.9520, L506.1000, L500.4100 #### [facility] [address] [place], [address] Eosinophil percentageOrdered By: Zahraa Isaac on 12-22-2024 Eosinophils/100 WBC (Bld) 4.7 % 0-5 [facility] Erythrocyte distribution wid th ratioOrdered By: Zahraa Isaac on 12-22-2024 Erythrocyte distribution width (RBC) [Ratio] 11.7 % 11.6-14.6 [facility] Erythrocyte distribution wid th standard deviationOrdered By: Zahraa Isaac on 12-22-2024 Erythrocyte distribution width (RBC) [Entitic vol] 37.2 fL 35.1-43.9 [facility] Estimated glomerular filtrat ion rate (GFR) AmericanOrdered By: Zahraa Isaac on 12-22-2024 Estimated GFR (MDRD) Amer 104 mL/min >60 [facility] Comment on above: GFR Calc Glomerular filtration rate ( GFR) estimationOrdered By: Zahraa Isaac on 12-22-2024 Estimated GFR (MDRD) Non-Af Amer 86 mL/min >60 [facility] Comment on above: Non- GFR Calc Glucose measurementOrdered B y: Zahraa Isaac on 12-22-2024 Glucose [Mass/Vol] 90 mg/dL 74-106 [facility] Hematocrit Auto (Bld) [Volum e fraction]Ordered By: Zahraa Isaac on 12-22-2024 Hematocrit (Bld) [Volume fraction] 41.8 % 37-47 [facility] Hemoglobin measurementOrdere d By: Zahraa Isaac on 12-22-2024 Hemoglobin (Bld) [Mass/Vol] 13.5 g/dL 12.0-15.0 [facility] High density lipoprotein (HD L) measurementOrdered By: Zahraa Isaac on 12-22-2024 Cholesterol in HDL [Mass/Vol] 52 mg/dL >40 [facility] Comment on above: The drugs N-Acetylcy steine and Metamizole may falsely depress this assay. Reference Range HDL <40 mg/dL Low HDL Cholesterol HDL >or= 60 mg/dL High HDL Cholesterol Immature granulocytes/100 WB C Auto (Bld)Ordered By: Zahraa Isaac on 12-22-2024 Immature granulocytes/100 WBC (Bld) 0.500 % 0.0-0.9 [facility] Comment on above: IG% - Immature Granu locytes (promyelocytes, myelocytes and metamyelocytes) > 1% indicates that a LEFT SHIFT is Present. Laboratory - Chemistry and C hemistry - challengeOrdered By: Zahraa Isaac on 12-22-2024 AST [Catalytic activity/Vol] 19 U/L 15-37 [facility] Lipid Profileon 12-22-2024 Cholesterol [Mass/Vol] 117 mg/dL Normal 200 [facility] Comment on above: Result Comment: <200 mg/dL Desirable 200-240 mg/dL Borderline >240 mg/dL High Risk Performed By: #### L 500.4050, L100.0100, L501.9520, L506.1000, L500.4100 #### [facility] [address] [place], [address] Cholesterol in HDL [Mass/Vol] 52 mg/dL Normal [facility] Comment on above: Result Comment: The drugs N-Acetylcysteine and Metamizole may falsely depress this assay. Reference Range HDL <40 mg/dL Low HDL Cholesterol HDL >or= 60 mg/dL High HDL Cholesterol Performed By: #### L 500.4050, L100.0100, L501.9520, L506.1000, L500.4100 #### [facility] [address] [place], [address] Cholesterol in LDL [Mass/Vol] 53 mg/dL Normal 0-130 [facility] Comment on above: Performed By: #### L 500.4050, L100.0100, L501.9520, L506.1000, L500.4100 #### [facility] [address] [place], [address] Cholesterol in VLDL [Mass/Vol] 12 mg/dL Normal 5-40 [facility] Comment on above: Performed By: #### L 500.4050, L100.0100, L501.9520, L506.1000, L500.4100 #### [facility] [address] [place], [address] Triglyceride [Mass/Vol] 61 mg/dL Normal [facility] Comment on above: Result Comment: The drugs N-Acetylcysteine and Metamizole may falsely depress this assay. Serum Triglycerides Reference Interval Normal <150 mg/dL Borderline high 150 - 199 mg/dL High 200 - 499 mg/dL Very High > or = 500 mg/dL Performed By: #### L 500.4050, L100.0100, L501.9520, L506.1000, L500.4100 #### [facility] [address] [place], [address] Low density lipoprotein (LDL ) cholesterol measurementOrdered By: Zahraa Isaac on 12-22-2024 Cholesterol in LDL [Mass/Vol] 53 mg/dL 0-130 [facility] Lymphocytes Auto (Unsp spec) [#/Vol]Ordered By: Zahraa Isaac on 12-22-2024 Lymphocytes (Bld) [#/Vol] 1.74 10*3/uL 0.83-4.51 [facility] Lymphocytes/100 WBC Auto (Un sp spec)Ordered By: Zahraa Isaac on 12-22-2024 Lymphocytes/100 WBC (Bld) 29.3 % 19-41 [facility] MCV (mean corpuscular volume ) determinationOrdered By: Zahraa Isaac on 12-22-2024 MCV (RBC) [Entitic vol] 89.1 fL 81-99 [facility] Mean corpuscular hemoglobin (MCH) determinationOrdered By: Zahraa Isaac on 12-22-2024 MCH (RBC) [Entitic mass] 28.8 pg 27.0-32.0 [facility] Mean corpuscular hemoglobin concentration (MCHC) determinationOrdered By: Zahraa Isaac on 12-22-2024 MCHC (RBC) [Mass/Vol] 32.3 g/dL 32-36 [facility] Mean platelet volume determi nationOrdered By: Zahraa Isaac on 12-22-2024 Platelet mean volume (Bld) [Entitic vol] 9.2 fL 6.2-12.0 [facility] Monocyte percentageOrdered B y: Zahraa Isaac on 12-22-2024 Monocytes/100 WBC (Bld) 7.6 % 0-10 [facility] Neutrophil percentageOrdered By: Zahraa Isaac on 12-22-2024 Neutrophils/100 WBC (Bld) 56.4 % 47-70 [facility] Nucleated red blood cell per centageOrdered By: Zahraa Isaac on 12-22-2024 Nucleated RBC/100 WBC (Bld) [Ratio] 0 % 0-5 [facility] Platelet countOrdered By: Kashif Isaac on 12-22-2024 Platelets (Bld) [#/Vol] 520 10*3/uL High 150-450 [facility] Potassium measurementOrdered By: Zahraa Isaac on 12-22-2024 Potassium [Moles/Vol] 3.9 mmol/L 3.5-5.1 [facility] RBC Auto (Bld) [#/Vol]Ordere d By: Zahraa Isaac on 12-22-2024 RBC (Bld) [#/Vol] 4.69 10*6/uL 4.2-5.4 [facility] Serum anion gap measurementO rdered By: Zahraa Isaac on 12-22-2024 Anion gap [Moles/Vol] 8 mmol/L 5-15 [facility] Serum globulin measurementOr dered By: Zahraa Isaac on 12-22-2024 Globulin (S) [Mass/Vol] 3.9 g/dL 2.2-4.2 [facility] Serum or plasma alanine darnell otransferase (ALT) measurementOrdered By: Zahraa Isaac on 12-22-2024 ALT [Catalytic activity/Vol] 25 U/L 13-56 [facility] Serum or plasma albumin micky urement (mass/volume)Ordered By: Zahraa Isaac on 12-22-2024 Albumin [Mass/Vol] 3.7 g/dL 3.2-5.0 [facility] Serum or plasma alkaline olinda sphatase measurementOrdered By: Zahraa Isaac on 12-22-2024 ALP [Catalytic activity/Vol] 114 U/L 45-117 [facility] Serum or plasma calcium micky urement (mass/volume)Ordered By: Zahraa Isaac on 12-22-2024 Calcium [Mass/Vol] 9.6 mg/dL 8.5-10.1 [facility] Serum or plasma cholesterol measurement (mass/volume)Ordered By: Zahraa Isaac on 12-22-2024 Cholesterol [Mass/Vol] 117 mg/dL <200 [facility] Comment on above: <200 mg/dL Desirable 200-240 mg/dL Borderline >240 mg/dL High Risk Serum or plasma creatinine m easurement (mass/volume)Ordered By: Zahraa Isaac on 12-22-2024 Creatinine [Mass/Vol] 0.74 mg/dL 0.55-1.02 [facility] Comment on above: The validity of the calculated GFR & GFRAA in patients over 70 years has not been determined. Clinical correlation is essential. Serum or plasma urea nitroge n measurement (mass/volume)Ordered By: Zahraa Isaac on 12-22-2024 Urea nitrogen [Mass/Vol] 15 mg/dL 7-18 [facility] Sodium levelOrdered By: Imani Isaac on 12-22-2024 Sodium [Moles/Vol] 139 mmol/L 136-145 [facility] TSH QnOrdered By: Zahraa le on 12-22-2024 Thyroid Stimulating Hormone (TSH) 1.150 uIU/mL 0.358-3.740 [facility] Thyroid Stim Hormone (TSH)on 12-22-2024 TSH 1.150 uIU/mL Normal 0.358-3.740 [facility] Comment on above: Performed By: #### L 500.4050, L100.0100, L501.9520, L506.1000, L500.4100 #### [facility] [address] [place], [place], [id number] Total proteinOrdered By: Lambert Isaac on 12-22-2024 Protein [Mass/Vol] 7.6 g/dL 6.4-8.2 [facility] Triglycerides measurementOrd ered By: Zahraa Isaac on 12-22-2024 Triglyceride [Mass/Vol] 61 mg/dL <199 [facility] Comment on above: The drugs N-Acetylcy steine and Metamizole may falsely depress this assay.Serum Triglycerides Reference Interval Normal <150 mg/dL Borderline high 150 - 199 mg/dL High 200 - 499 mg/dL Very High > or = 500 mg/dL Very low density lipoprotein (VLDL) cholesterol measurementOrdered By: Zahraa Isaac on 12-22-2024 VLDL Cholesterol 12 mg/dL 5-40 [facility] Vitamin D,25 Hydroxyon 12-22 Vitamin D 25-OH 47.3 ng/mL Normal [facility] Comment on above: Result Comment: Christina min D 25(OH) Status Range Deficiency <20 ng/mL (50nmol/L) Insufficiency 20 - 30 ng/mL (50 - 75 nmol/L) Sufficiency 30 - 100 ng/mL (75 - 250 nmol/L) Toxicity >100 ng/mL (>250 nmol/L) Performed By: #### L 500.4050, L100.0100, L501.9520, L506.1000, L500.4100 #### [facility] [address] [place], [address] White blood cell (WBC) count Ordered By: Zahraa Isaac on 12-22-2024 WBC (Bld) [#/Vol] 5.9 10*3/uL 4.4-11.0 [facility] Absolute lymphocyte countOrd ered By: Rajan Olsen on 02-10-2024 Lymphocytes Auto (Unsp spec) [#/Vol] 1.88 10*3/uL 0.83-4.51 [facility] Automated lymphocyte count a s percentage of total leukocytesOrdered By: Rajan Olsen on 02-10-2024 Lymphocytes/100 WBC Auto (Unsp spec) 31.5 % 19-41 [facility] Basophil percentageOrdered B y: Rajan Olsen on 02-10-2024 Basophils/100 WBC (Bld) 1.3 % 0-1 [facility] Bilirubin [Mass/Vol] 0.50 mg/dL 0.20-1.00 [facility] Comment on above: For patients on eltr ombopag therapy, use of Dimension [place] TBIL is not recommended. Chloride [Moles/Vol] 105 mmol/L 98-107 [facility] Cholesterol [Mass/Vol] 151 mg/dL <200 [facility] Comment on above: <200 mg/dL Desirable 200-240 mg/dL Borderline >240 mg/dL High Risk Eosinophils/100 WBC (Bld) 7.7 % 0-5 [facility] Glucose [Mass/Vol] 104 mg/dL 74-106 [facility] Comment on above: Fasting Glucose resu lt from 100 to 125 mg/dL suggests IMPAIRED HOMEOSTASIS per A.D.A. criteria. Hemoglobin (Bld) [Mass/Vol] 14.0 g/dL 12.0-15.0 [facility] Monocytes/100 WBC (Bld) 7.7 % 0-10 [facility] Neutrophils (Bld) [#/Vol] 3.1 10*3/uL 2.0-7.7 [facility] Neutrophils/100 WBC (Bld) 51.1 % 47-70 [facility] Potassium [Moles/Vol] 4.4 mmol/L 3.5-5.1 [facility] Protein [Mass/Vol] 7.4 g/dL 6.4-8.2 [facility] Sodium [Moles/Vol] 139 mmol/L 136-145 [facility] Triglyceride [Mass/Vol] 141 mg/dL <199 [facility] Comment on above: The drugs N-Acetylcy steine and Metamizole may falsely depress this assay.Serum Triglycerides Reference Interval Normal <150 mg/dL Borderline high 150 - 199 mg/dL High 200 - 499 mg/dL Very High > or = 500 mg/dL WBC (Bld) [#/Vol] 6.0 10*3/uL 4.4-11.0 [facility] Determination of erythrocyte mean corpuscular volume (MCV)Ordered By: Rajan Olsen on 02-10-2024 MCV (RBC) [Entitic vol] 86.7 fL 81-99 [facility] Erythrocyte distribution wid th ratioOrdered By: [facility] on 02-10-2024 Erythrocyte distribution width (RBC) [Ratio] 11.6 % 11.6-14.6 [facility] Erythrocyte distribution wid th standard deviationOrdered By: [facility] on 02-10-2024 Erythrocyte distribution width (RBC) [Entitic vol] 36.8 fL 35.1-43.9 [facility] Hematocrit Auto (Bld) [Volum e fraction][facility] Hematocrit (Bld) [Volume fraction] 41.2 % 37-47 [facility] Immature granulocytes/100 WB C Auto (Bld)Ordered By: [facility] on 02-10-2024 Immature granulocytes/100 WBC (Bld) 0.700 % 0.0-0.9 [facility] Comment on above: IG% - Immature Granu locytes (promyelocytes, myelocytes and metamyelocytes) > 1% indicates that a LEFT SHIFT is Present. Laboratory - Chemistry and C hemistry - challengeOrdered By: Rajan Yelena on 02-10-2024 Albumin/Globulin [Mass ratio] 1.1 {ratio} 0.9-2.4 [facility] ALP [Catalytic activity/Vol] 89 U/L 45-117 [facility] ALT [Catalytic activity/Vol] 27 U/L 13-56 [facility] Cholesterol in HDL [Mass/Vol] 44 mg/dL >40 [facility] Comment on above: The drugs N-Acetylcy steine and Metamizole may falsely depress this assay. Reference Range HDL <40 mg/dL Low HDL Cholesterol HDL >or= 60 mg/dL High HDL Cholesterol Cholesterol in LDL [Mass/Vol] 79 mg/dL 0-130 [facility] CO2 [Moles/Vol] 27.0 mmol/L 21.0-32.0 [facility] Globulin (S) [Mass/Vol] 3.6 g/dL 2.2-4.2 [facility] Urea nitrogen/Creatinine [Mass ratio] 20.1 mg/mg 10-20 [facility] Laboratory - Hematology and Cell countsOrdered By: Rajan Olsen on 02-10-2024 MCH (RBC) [Entitic mass] 29.5 pg 27.0-32.0 [facility] MCHC (RBC) [Mass/Vol] 34.0 g/dL 32-36 [facility] Nucleated RBC/100 WBC (Bld) [Ratio] 0 % 0-5 [facility] Platelet mean volume (Bld) [Entitic vol] 9.1 fL 6.2-12.0 [facility] Platelets (Bld) [#/Vol] 466 10*3/uL 150-450 [facility] No Panel InformationOrdered By: aRjan Olsen on 02-10-2024 Estimated GFR (MDRD) Amer 96 mL/min >60 [facility] Comment on above: GFR Calc Estimated GFR (MDRD) Non-Af Amer 80 mL/min >60 [facility] Comment on above: Non- GFR Calc Vitamin D 25-Hydroxy 41.5 ng/mL [facility] Comment on above: Vitamin D 25(OH) Sta tus Range Deficiency <20 ng/mL (50nmol/L) Insufficiency 20 - 30 ng/mL (50 - 75 nmol/L) Sufficiency 30 - 100 ng/mL (75 - 250 nmol/L) Toxicity >100 ng/mL (>250 nmol/L) VLDL Cholesterol 28 mg/dL 5-40 [facility] RBC Auto (Bld) [#/Vol]Ordere d By: Rajan Olsen on 02-10-2024 RBC (Bld) [#/Vol] 4.75 10*6/uL [facility]2-5.4 [facility] Serum or plasma calcium micky urement (mass/volume)Ordered By: Rajan Olsen on 02-10-2024 Calcium [Mass/Vol] 9.5 mg/dL 8.5-10.1 [facility] Serum or plasma creatinine m easurement (mass/volume)Ordered By: Rajan Olsen on 02-10-2024 Creatinine [Mass/Vol] 0.80 mg/dL 0.55-1.02 [facility] Comment on above: The validity of the calculated GFR & GFRAA in patients over 70 years has not been determined. Clinical correlation is essential. Serum or plasma thyroid stim ulating hormone (TSH) measurement (units/volume)Or[facility] By: [facility] 02-10-2024 TSH Qn 1.28 uIU/mL 0.358-3.74 [facility] Serum or plasma urea nitroge n measurement (mass/volume)Ordered By: [facility] on 02-10-2024 Urea nitrogen [Mass/Vol] 16 mg/dL 7-18 [facility] Thin prep Papanicolaou smear with manual screeningOrdered By: [facility] on 02-10-2024 Thin prep Papanicolaou smear with manual screening 3.8 g/dL 3.2-5.0 [facility] Thin prep Papanicolaou smear with manual screening 23 U/L 1537 [facility] Thin prep Papanicolaou smear with manual screening 7 5-15 [facility] CBC W Auto Differential pane l (Bld)on 10-06-2022 Basophils (Bld) [#/Vol] 0.07 10*3/uL <0.11 k/uL [facility] Basophils/100 WBC (Bld) 1.1 % [facility] Differential cell count method Nom (Bld) Auto [facility] Eosinophils (Bld) [#/Vol] 0.22 10*3/uL <0.46 k/uL [facility] Eosinophils/100 WBC (Bld) 3.5 % [facility] Erythrocyte distribution width (RBC) [Ratio] 11.6 % 11.5 - 15.0 % [facility] Hematocrit (Bld) [Volume fraction] 42.2 % 36.0 - 46.0 % [facility] Hemoglobin (Bld) [Mass/Vol] 14.4 g/dL 11.5 - 15.5 g/dL [facility] Immature granulocytes (Bld) [#/Vol] 0.04 10*3/uL <0.10 k/uL [facility] Immature granulocytes/100 WBC (Bld) 0.6 % [facility] Lymphocytes (Bld) [#/Vol] 1.91 10*3/uL 1.00 - 4.00 k/uL [facility] Lymphocytes/100 WBC (Bld) 30.5 % [facility] MCH (RBC) [Entitic mass] 29.4 pg 26. 0 - 34.0 pg [facility] MCHC (RBC) [Mass/Vol] 34.1 g/dL 30.5 - 36.0 g/dL [facility] MCV (RBC) [Entitic vol] 86.1 fL 80.0 - 100.0 fL [facility] Monocytes (Bld) [#/Vol] 0.40 10*3/uL <0.87 k/uL [facility] Monocytes/100 WBC (Bld) 6.4 % [facility] Neutrophils (Bld) [#/Vol] 3.62 10*3/uL 1.45 - 7.50 k/uL [facility] Neutrophils/100 WBC (Bld) 57.9 % [facility] Nucleated RBC (Bld) [#/Vol] <0.01 k/uL [facility] Nucleated RBC/100 WBC (Bld) [Ratio] 0.0 /100 WBC [facility] Platelet mean volume (Bld) [Entitic vol] 8.7 fL Low 9.0 - 12.7 fL [facility] Platelets (Bld) [#/Vol] 441 10*3/uL High 150 - 400 k/uL [facility] RBC (Bld) [#/Vol] 4.90 10*6/uL 3.90 - 5.2 0 m/uL [facility] WBC (Bld) [#/Vol] 6.26 10*3/uL 3.70 - 11. 00 k/uL [facility] Comprehensive metabolic 2000 panelon 10-06-2022 Albumin [Mass/Vol] 4.4 g/dL 3.9 - 4.9 g/dL [facility] ALP [Catalytic activity/Vol] 121 U/L 34 - 123 U/L [facility] ALT [Catalytic activity/Vol] 18 U/L 7 - 38 U/L [facility] Anion gap [Moles/Vol] 11 mmol/L 9 - 18 mmol/L [facility] AST [Catalytic activity/Vol] 21 U/L 13 - 35 U/L [facility] Bilirubin [Mass/Vol] 0.3 mg/dL 0.2 - 1 .3 mg/dL [facility] Calcium [Mass/Vol] 9.5 mg/dL 8.5 - 10. 2 mg/dL [facility] Chloride [Moles/Vol] 103 mmol/L 97 - 10 5 mmol/L [facility] CO2 [Moles/Vol] 26 mmol/L 22 - 30 mmol/L [facility] Creatinine [Mass/Vol] 0.91 mg/dL 0.58 - 0.96 mg/dL [facility] Estimated Glomerular Filtration Rate 75 mL/min/1.73m >=60 mL/min/1.73m [facility] Glucose [Mass/Vol] 111 mg/dL High 74 - 99 mg/dL [facility] Potassium [Moles/Vol] 4.4 mmol/L 3.7 - 5.1 mmol/L [facility] Protein [Mass/Vol] 7.0 g/dL 6.3 - 8.0 g/dL [facility] Sodium [Moles/Vol] 140 mmol/L 136 - 144 mmol/L [facility] Urea nitrogen [Mass/Vol] 18 mg/dL 7 - 21 mg/d L [facility] JONN SCREENINGon 10-06-2022 [facility] Vital Signs Date Time Vital Sign Value Performing Clinician Facility 07-18-2025 18:16-0400 Body mass index (BMI) [Ratio] 34.19 kg/m2 Yifan Hill MD Work Phone: [facility] 07-18-2025 18:16-0400 Body temperature 97.5 [degF] Yifan Hill MD Work Phone: [facility] 07-18-2025 18:16-0400 Body weight 95.8 kg Yifan Hill MD Work Phone: [facility] 07-18-2025 18:16-0400 Diastolic blood pressure 90 mm[Hg] Yifan Hill MD Work Phone: [facility] 07-18-2025 18:16-0400 Heart rate 75 /min Yifan Hill MD Work Phone: [facility] 07-18-2025 18:16-0400 Respiratory rate 20 /min Yifan Hill MD Work Phone: [facility] 07-18-2025 18:16-0400 SaO2% (BldA) [Mass fraction] 99 % Yifan Hill MD Work Phone: [facility] 07-18-2025 18:16-0400 Systolic blood pressure 120 mm[Hg] Yifan Hill MD Work Phone: [facility] 03-07-2025 08:35-0400 Body height 170.18 cm Rajan Olsen MD Work Phone: [facility] 03-07-2025 08:35-0400 Body mass index (BMI) [Ratio] 32.2 kg/m2 Rajan Olsen MD Work Phone: [facility] 03-07-2025 08:35-0400 Body weight 93.44 kg Rajan Olsen MD Work Phone: [facility] 01-30-2025 07:05-0500 Body height 167.4 cm Na Trevor NET LEAD ARCHITECT.POLYSOMNOGRAPHIC TECH Work Phone: [facility] 01-30-2025 07:05-0500 Body mass index (BMI) [Ratio] 32.73 kg/m2 Na Samia NET LEAD ARCHITECT.POLYSOMNOGRAPHIC TECH Work Phone: [facility] 01-30-2025 07:05-0500 Body weight 91.72 kg Na Trevor NET LEAD ARCHITECT.POLYSOMNOGRAPHIC TECH Work Phone: [facility] 01-30-2025 07:05-0500 Diastolic blood pressure 68 mm[Hg] Na Trevor NET LEAD ARCHITECT.POLYSOMNOGRAPHIC TECH Work Phone: [facility] 01-30-2025 07:05-0500 Systolic blood pressure 124 mm[Hg] Na Samia NET LEAD ARCHITECT.POLYSOMNOGRAPHIC TECH Work Phone: [facility] 12-31-2024 12:15-0500 Body height 170.18 cm Rajan Olsen MD Work Phone: [facility] 12-31-2024 12:15-0500 Body mass index (BMI) [Ratio] 31.8 kg/m2 Rajan Olsen MD Work Phone: [facility] 12-31-2024 12:15-0500 Body temperature 98.2 [degF] Rajan Olsen MD Work Phone: [facility] 12-31-2024 12:15-0500 Body weight 92.24 kg Rajan Olsen MD Work Phone: [facility] 12-31-2024 12:15-0500 Diastolic blood pressure 86 mm[Hg] Rajan Olsen MD Work Phone: [facility] 12-31-2024 12:15-0500 Heart rate 81 /min Rajan Olsen MD Work Phone: [facility] 12-31-2024 12:15-0500 SaO2% (BldA) [Mass fraction] 99 % Rajan Olsen MD Work Phone: [facility] 12-31-2024 12:15-0500 Systolic blood pressure 122 mm[Hg] Rajan Olsen MD Work Phone: [facility] 10-06-2022 07:56-0500 Body height 168.3 cm Na Samia NET LEAD ARCHITECT.POLYSOMNOGRAPHIC TECH Work Phone: [facility] 10-06-2022 07:56-0500 Body weight 104.51 kg Na Samia NET LEAD ARCHITECT.POLYSOMNOGRAPHIC TECH Work Phone: [facility] 10-06-2022 07:56-0500 Diastolic blood pressure 72 mm[Hg] Na Samia NET LEAD ARCHITECT.POLYSOMNOGRAPHIC TECH Work Phone: [facility] 10-06-2022 07:56-0500 Systolic blood pressure 120 mm[Hg] Na Samia NET LEAD ARCHITECT.POLYSOMNOGRAPHIC TECH Work Phone: [facility] 03-09-2022 17:41-0400 Body temperature 98.01 [degF] Eliza Wolff NET LEAD ARCHITECT.POLYSOMNOGRAPHIC TECH Work Phone: [facility] 03-09-2022 17:41-0400 Body weight 104.87 kg Eliza Praisler-Wood NET LEAD ARCHITECT.POLYSOMNOGRAPHIC TECH Work Phone: [facility] 03-09-2022 17:41-0400 Diastolic blood pressure 80 mm[Hg] Eliza Praisler-Wood NET LEAD ARCHITECT.POLYSOMNOGRAPHIC TECH Work Phone: [facility] 03-09-2022 17:41-0400 Heart rate 85 /min Eliza Praisler-Wood NET LEAD ARCHITECT.POLYSOMNOGRAPHIC TECH Work Phone: [facility] 03-09-2022 17:41-0400 Respiratory rate 21 /min Eliza Praisler-Wood NET LEAD ARCHITECT.POLYSOMNOGRAPHIC TECH Work Phone: [facility] 03-09-2022 17:41-0400 SaO2% (BldA) [Mass fraction] 96 % Eliza Praisler-Wood NET LEAD ARCHITECT.POLYSOMNOGRAPHIC TECH Work Phone: [facility] 03-09-2022 17:41-0400 Systolic blood pressure 138 mm[Hg] Eliza Praisler-Wood NET LEAD ARCHITECT.POLYSOMNOGRAPHIC TECH Work Phone: [facility] Encounters Encounter Date Encounter Type Care Provider Facility Start: 07-18-2025 End: 07-18-2025 Patient encounter procedure Yifan Hill MD Work Phone: [facility] [place] Comment on above: Hematuria, unspecifi ed type (Primary Dx) Start: 07-18-2025 End: 07-18-2025 ambulatory RAJAN OLSEN Facility:[facility] Start: 07-04-2025 End: 07-04-2025 ambulatory DEAN LARIOS Facility:[facility] Start: 05-03-2025 End: 05-03-2025 ambulatory Rajan Olsen MD Work Phone: [facility] Work Phone: Start: 05-03-2025 End: 05-03-[address] Bruce Ferguson DO -Physical Therapy Work Phone: Start: 03-07-2025 End: 03-07-[address] Bruce Ferguson DO -[facility] Work Phone: Start: 03-07-2025 End: 03-07-2025 ambulatory Rajan Olsen Facility:[facility] Start: 02-14-2025 End: 02-14-2025 ambulatory Rajan Olsen MD Work Phone: [facility] Work Phone: Start: 02-14-2025 End: 02-14-[address] Rajan Olsen MD -Radiology, [place] Work Phone: Start: 02-14-2025 End: 02-14-2025 ambulatory Rajan Olsen Facility:[facility] Start: 02-08-2025 End: 04-10-2025 Follow-up encounter Na Kwan APRN.CNP Work Phone: OB/Gynecology Start: 01-30-2025 End: 01-30-2025 ambulatory DENA LARIOS Facility:[facility] Start: 01-30-2025 End: 01-30-2025 Patient encounter procedure Na Kwan APRN.CNP Work Phone: OB/Gynecology Comment on above: Encounter for gyneco logical examination (general) (routine) without abnormal findings (Primary Dx); Encounter for screening for human papillomavirus (HPV); Pap smear for cervical cancer screening; Encounter for screening mammogram for breast cancer Start: 01-30-2025 End: 01-30-2025 Patient encounter status Na Kwan APRN.CNP Work Phone: [facility] Start: 12-31-2024 End: 12-31-2024 Patient encounter procedure Deangelo Hernandez [facility] Work Phone: Start: 12-31-2024 End: 12-31-2024 ambulatory Deangelo Hernandez Facility:[facility] Start: 12-25-2024 End: 12-25-2024 ambulatory NA KWAN Facility:[facility] Start: 12-25-2024 End: 12-25-2024 Subsequent hospital visit by physician Screen Mammo [facility] Comment on above: Encounter for screen ing mammogram for malignant neoplasm of breast [Z12.31] Start: 12-22-2024 End: 12-22-2024 Patient encounter procedure Zahraa Isaac [employer] BURNISHER-C -[facility] Start: 12-22-2024 End: 12-22-2024 ambulatory Zahraa Isaac [employer] Facility:[facility] Start: 11-13-2024 End: 11-13-2024 ambulatory Na Kwan APRN.POLYSOMNOGRAPHIC TECH Work Phone: OB/Gynecology Comment on above: Mammogram Start: 02-10-2024 End: 02-10-2024 ambulatory [facility] Work Phone: Start: 02-10-2024 End: 02-10-2024 Patient encounter procedure [facility] Start: 10-06-2022 Documentation procedure Mammog ashlie Coordinator [facility] Start: 10-06-2022 Letter encounter Mammography Coordinator [facility] Department Start: 10-06-2022 End: 10-06-2022 Patient encounter procedure Na Kwan NET LEAD ARCHITECT.POLYSOMNOGRAPHIC TECH Work Phone: OB/Gynecology Comment on above: Encounter for gyneco logical examination (general) (routine) without abnormal findings (Primary Dx); Encounter for screening mammogram for breast cancer; Laboratory exam ordered as part of routine general medical examination; Skin yeast infection Start: 10-06-2022 End: 10-06-2022 Patient encounter status Na Kwan APRN.POLYSOMNOGRAPHIC TECH Work Phone: OB/Gynecology Start: 10-06-2022 End: 10-06-2022 Subsequent hospital visit by physician Screen Mammo [facility] Comment on above: Encounter for screen ing mammogram for malignant neoplasm of breast [Z12.31] Start: 09-23-2022 Telephone encounter Na [facility] kevin NET LEAD ARCHITECT.POLYSOMNOGRAPHIC TECH Work Phone: OB/Gynecology Comment on above: Orders Start: 03-09-2022 End: 03-09-2022 Patient encounter procedure Eliza Wolff NET LEAD ARCHITECT.POLYSOMNOGRAPHIC TECH Work Phone: [facility] Comment on above: Erysipelas (Primary Dx) Procedures Date Procedure Procedure Detail Performing Clinician Start: 08-20-2025 Urnls dip stick/tabl et rgnt auto w/o microscopy Yifan Hill MD Work Phone: Start: 03-07-2025 X-ray of lumbar spin e, two or three views Rajan Olsen MD Work Phone: Start: 02-14-2025 Plain x-ray of pelvi s and lower extremity Rajan Olesn MD Work Phone: Start: 10-06-2022 Lipid 1996 panel - S kaykay or Plasma Screen Ws Start: 10-06-2022 End: 10-06-2022 Mammography Dena Helton APRN.POLYSOMNOGRAPHIC TECH Work Phone: Start: 05-13-2020 Mammography Eliza Swenson APRN.POLYSOMNOGRAPHIC TECH Work Phone: Start: 02-23-2019 Colonoscopy Eliza Swenson APRN.POLYSOMNOGRAPHIC TECH Work Phone: Plan of Treatment Date Care Activity Detail Author Start: 08-23-2030 Urine microalbumin profile DTaP,Tdap,Td Vaccine (2 - Td or Tdap) [facility] Start: 01-30-2030 Screening for malign ant neoplasm of cervix Cervical Cancer Screening [facility] Start: 02-23-2029 Colonoscopy COLONOSCOPY [facility] Start: 02-23-2029 COLORECTAL CANCER SCREENING COLORECTAL CANCER SCREENING [facility] Start: 02-23-2029 Screening for malign ant neoplasm of colon [facility] Start: 10-06-2027 Lipid 1996 panel - Serum or Plasma Lipid Screening [facility] Start: 10-06-2027 Lipid panel Lipid Screening [facility] Start: 10-06-2027 LIPID SCREEN LIPID SCREEN [facility] Start: 12-25-2025 Screening for malign ant neoplasm of breast Mammogram Screening [facility] Start: 10-06-2025 DIABETES SCREEN DIABETES SCREEN [facility] Start: 10-06-2025 Diabetes Screening Diabetes Screenin g [facility] Start: 07-30-2025 Influenza vaccination C [facility] Start: 05-13-2025 HPV TESTING HPV TESTING [facility] Start: 05-13-2025 PAP TESTING PAP TESTING [facility] Start: 05-13-2025 Screening for malign ant neoplasm of cervix Cervical Cancer Screening [facility] Start: 03-07-2025 Patient referral [facility] Work Phone: Start: 01-30-2025 End: 01-30-2025 Patient encounter procedure 01/30/2025 7:00 AM EST Office Visit OB/Gynecology [address] [place] [address] SamiaNa moreno, NET LEAD ARCHITECT.POLYSOMNOGRAPHIC TECH [address] [place] [address] Exam and screening OB/Gynecology Comment on above: Exam and screening Start: 12-25-2024 End: 12-25-2024 Patient encounter procedure 12/25/2024 9:00 AM EST Office Visit OB/Gynecology [address] [place] [address] Na Kwan, NET LEAD ARCHITECT.POLYSOMNOGRAPHIC TECH [address] [place] [address] Exam and screening OB/Gynecology Comment on above: Exam and screening Start: 07-30-2024 Covid-19 Vaccine ( season) Covid-19 Vaccine ( season) [facility] Start: 07-30-2024 Influenza vaccination Influenza Vacc ine (#1) [facility] Start: 02-14-2024 LIPID SCREEN LIPID SCREEN [facility] Start: 10-06-2023 Mammography [facility] Start: 10-06-2023 Screening for malign ant neoplasm of breast Mammogram Screening [facility] Start: 07-30-2023 Covid-19 Vaccine ( season) Covid-19 Vaccine ( season) [facility] Start: 07-30-2023 Influenza vaccination Influenza Vacc ine (#1) [facility] Start: 11-29-2022 Depression Assessment Depression Ass essment [facility] Start: 10-06-2022 End: 12-06-2022 Lipid 1996 panel - Serum or Plasma [facility] Work Phone: Comment on above: Expected: 10/06/2022 , Expires: 12/06/2022 Start: 10-06-2022 End: 12-06-2022 Thyrotropin [Units/volume] in Serum or Plasma [facility] Work Phone: Comment on above: Expected: 10/06/2022 , Expires: 12/06/2022 Start: 07-30-2022 Influenza vaccination [facility] Start: 02-13-2022 DIABETES SCREEN DIABETES SCREEN [facility] Start: 11-29-2021 DEPRESSION ASSESSMENT DEPRESSION ASS ESSMENT [facility] Start: 09-08-2021 COVID-19 VACCINE (3 - Booster for Pfizer series) COVID-19 VACCINE (3 - Booster for Pfizer series) [facility] Start: 06-03-2021 COVID-19 VACCINE (3 - Booster for Pfizer series) COVID-19 VACCINE (3 - Booster for Pfizer series) [facility] Start: 05-13-2021 Mammography MAMMOGRAM [facility] Start: 2018 Pneumococcal Vaccine : 50+ (1 of 1 - PCV) Pneumococcal Vaccine: 50+ (1 of 1 - PCV) [facility] Start: 2018 SHINGRIX VACCINE (1 of 2) SHINGRIX VACCINE (1 of 2) [facility] Start: 2013 COLOGUARD (FIT-DNA) COLOGUARD (FIT-D NA) [facility] Start: [address] COLONOGRAPHY [facility] Start: 2013 FECAL OCCULT BLOOD FECAL OCCULT BLOO D [facility] Start: 2013 Screening for malign ant neoplasm of colon [facility] Start: 2013 SIGMOIDOSCOPY SIGMOIDOSCOPY [facility] Start: 1987 Hepatitis B Vaccine (1 of 3 - 19+ 3-dose series) Hepatitis B Vaccine (1 of 3 - 19+ 3-dose series) [facility] Start: 1987 Urine microalbumin profile DTAP,TDAP,TD (1 - Tdap) [facility] Start: 1986 Anxiety Screening Anxiety Screening [facility] Start: 1986 Depression Screening Depression Scre ening [facility] Start: 1986 HEPATITIS C SCREENING HEPATITIS C [facility] Start: 1986 Hepatitis C screening Hepatitis C [facility] Start: 1986 HIV SCREENING HIV SCREENING [facility] Start: 1986 HIV screening HIV Screening [facility] Start: 1980 Adult depression screening assessment DEPRESSION SCREENING [facility] Start: 1968 HEPATITIS B (1 of 3 - 3-dose series) HEPATITIS B (1 of 3 - 3-dose series) [facility] Start: 1968 Hepatitis B Vaccine (1 of 3 - 3-dose series) Hepatitis B Vaccine (1 of 3 - 3-dose series) [facility] Bacteria identified in Urine by Culture BACTERIAL CULTURE, URINE Microbiology Routine Hematuria, unspecified type Ordered: 07/18/2025 [facility] Work Phone: Comment on above: Ordered: 07/18/2025 End: 12-13-2025 DBT Breast - bilateral screening JONN SCREENING [facility] Radiology Routine Encounter for screening mammogram for malignant neoplasm of breast 1 Occurrences starting 11/13/2024 until 12/13/2025 [facility] Work Phone: Comment on above: 1 Occurrences starti ng 11/13/2024 until 12/13/2025 DBT Breast - bilater al screening JONN SCREENING [facility] Radiology Routine Encounter for screening mammogram for malignant neoplasm of breast 12/25/2024 8:24 AM EST [facility] Work Phone: End: 03-01-2026 DBT Breast - bilateral screening JONN SCREENING [facility] Radiology Routine Encounter for gynecological examination (general) (routine) without abnormal findings Encounter for screening mammogram for breast cancer 1 Occurrences starting 01/30/2025 until 03/01/2026 [facility] Work Phone: Comment on above: 1 Occurrences starti ng 01/30/2025 until 03/01/2026 PAP TEST PAP TEST Lab Rou edna Encounter for gynecological examination (general) (routine) without abnormal findings Encounter for screening for human papillomavirus (HPV) Pap smear for cervical cancer screening 01/30/2025 7:32 AM EST [facility] Patient referral [facility] Work Phone: End: 10-23-2023 Screening mammography bi 2-view breast inc cad JONN SCREENING Radiology Routine Encounter for screening mammogram for malignant neoplasm of breast 1 Occurrences starting 09/23/2022 until 10/23/2023 [facility] Work Phone: Comment on above: 1 Occurrences starti ng 09/23/2022 until 10/23/2023 End: 11-05-2023 Screening mammography bi 2-view breast inc cad JONN SCREENING Radiology Routine Encounter for screening mammogram for breast cancer 1 Occurrences starting 10/06/2022 until 11/05/2023 [facility] Work Phone: Comment on above: 1 Occurrences starti ng 10/06/2022 until 11/05/2023 [facility] Immunizations Immunization Date Immunization Notes Care Provider Fa cility 08-23-2020 influenza virus vacc ine, unspecified formulation Screen Wstr [facility] Payers Date Payer Category Payer Self-pay [id number] 2023 Private Health Insurance [employer] [id number] 2023 Unknown [id number] 2020 Unknown [employer] PPO [id number] 2020-Present [phone] [address] [place] [address] PPO [id number] 2020 Unknown [id number] 2016 Unknown MAGO [id number] Self-pay SELF PAY INSURANCE [id number] 01 [id number] Unknown [id number] Unknown [id number] Unknown [id number] Unknown [id number] Unknown [id number] Unknown [id number] Social History Date Type Detail Facility Start: 10-03-2015 End: 12-31-2024 Tobacco smoking status NHIS Never smoked tobacco [facility] Start: 10-03-2015 Tobacco use and exposure Smoke less tobacco non-user [facility] Start: 03-09-2022 End: 01-30-2025 Alcohol intake Current non-drinker of alcohol (finding) [facility] Start: 05-13-2020 History SDOH Social Connections Phone 5 [facility] Start: 05-13-2020 History SDOH Social Connections Get Together 2 [facility] Start: 05-13-2020 History SDOH Social Connections Nondenominational 3 [facility] Start: 05-13-2020 History SDOH Social Connections Membership 1 [facility] Start: 05-13-2020 History SDOH Physica l Activity MPS 6 [facility] Start: 05-13-2020 Education 21 [facility] Start: 1970 Sex Assigned At Not on file C [facility] Start: 09-26-2022 End: 10-06-2022 Exposure to SARS-CoV-2 (event) Not sure [facility] Start: 05-13-2020 End: 12-25-2024 [facility] Work Phone: Start: 05-13-2020 End: 12-25-2024 Social connection and isolation panel [facility] Work Phone: Do you belong to any clubs or organizations such as presybeterian groups, unions, fraternal or athletic groups, or school groups? Yes [facility] Work Phone: Are you now , , , , never or living with a partner? [facility] Work Phone: Start: 10-30-2012 How hard is it for y ou to pay for the very basics like food, housing, medical care, and heating Not hard at all [facility] Work Phone: Do you feel stress - tense, restless, nervous, or anxious, or unable to sleep at night because your mind is troubled all the time - these days [OSQ] Only a little [facility] Work Phone: (I/We) worried wheth er (my/our) food would run out before (I/we) got money to buy more. Never true [facility] Work Phone: Start: 01-28-2023 [facility] Start: 1970 Sex Assigned At Female W [facility] Start: 02-23-2025 Sex Female (finding) [facility] Clinical Notes 03-09-2022 to 07-18-2025 Yifan Hill MD - 07/18/2025 6:19 PM EDT Note Date & Type Note Facility 07-18-2025 Note HNO ID: [id number] Author: YIFAN HILL MD Service: ? Author Type: Physician Type: Progress Notes Filed: 07/18/2025 18:33 Note Text: URGENT CARE [facility] Adeline Prater is a 55 year old female. Patient presents with: Urinary Problem: Possible uti, blood in urine, frequency x 2 weeks Patient presents with 2 weeks of urinary symptoms. She was evaluated by gynecology 07/04/2025. She tested negative for BV, yeast, and trichomonas. Urine culture grew E. coli sensitive to the Bactrim prescribed. Patient's had return of symptoms including urinary frequency with little production, pelvic pressure, dysuria, hematuria, cloudy urine with odor. Denies personal or family history of kidney stones. Review of Systems Objective BP 120/90 Pulse 75 Temp 36.4 ?C (97.5 ?F) Resp 20 Wt 95.8 kg (211 lb 3.2 oz) LMP 09/07/2013 SpO2 99% BMI 34.19 kg/m? Physical Exam Constitutional: General: She is not in acute distress. HENT: Mouth/Throat: Mouth: Mucous membranes are moist. Eyes: Extraocular Movements: Extraocular movements intact. Conjunctiva/sclera: Conjunctivae normal. Pupils: Pupils are equal, round, and reactive to light. Cardiovascular: Rate and Rhythm: Normal rate and regular rhythm. Heart sounds: No murmur heard. Pulmonary: Effort: No respiratory distress. Breath sounds: No wheezing, rhonchi or rales. Abdominal: Palpations: There is no mass. Tenderness: There is no abdominal tenderness (Mid abdominal discomfort with palpation). There is no right CVA tenderness or left CVA tenderness. Musculoskeletal: Cervical back: Neck supple. Neurological: Mental Status: She is alert. {ASSESSMENT/PLAN: 1. Hematuria, unspecified type - ICD9: 599.70, ICD10: R31.9 - UA DIP, URINE (POC) -trace blood and small leukocyte esterase. - BACTERIAL CULTURE, URINE - SULFAMETHOXAZOLE 800 MG-TRIMETHOPRIM 160 MG TABLET x 7 days for recurrent UTI. Advised follow-up for blood in the urine with PCP or [facility] if culture is negative. Yifan Hill MD Differential Diagnoses - Urinary tract infection is more likely for the following reason(s): suggested by HANDP and consistent with laboratory studies - Renal calculus is less likely for the following reason(s): No history of condition - Hematuria differential Procedures [facility] 07-18-2025 History of Present illness Narrative [facility] Adeline Prater is a 55 year old female. Patient presents with: Urinary Problem: Possible uti, blood in urine, frequency x 2 weeks Patient presents with 2 weeks of urinary symptoms. She was evaluated by gynecology 07/04/2025. She tested negative for BV, yeast, and trichomonas. Urine culture grew E. coli sensitive to the Bactrim prescribed. Patient's had return of symptoms including urinary frequency with little production, pelvic pressure, dysuria, hematuria, cloudy urine with odor. Denies personal or family history of kidney stones. Review of Systems Objective BP 120/90 Pulse 75 Temp 36.4 C (97.5 F) Resp 20 Wt 95.8 kg (211 lb 3.2 oz) LMP 09/07/2013 SpO2 99% BMI 34.19 kg/m Physical Exam Constitutional: General: She is not in acute distress. HENT: Mouth/Throat: Mouth: Mucous membranes are moist. Eyes: Extraocular Movements: Extraocular movements intact. Conjunctiva/sclera: Conjunctivae normal. Pupils: Pupils are equal, round, and reactive to light. Cardiovascular: Rate and Rhythm: Normal rate and regular rhythm. Heart sounds: No murmur heard. Pulmonary: Effort: No respiratory distress. Breath sounds: No wheezing, rhonchi or rales. Abdominal: Palpations: There is no mass. Tenderness: There is no abdominal tenderness (Mid abdominal discomfort with palpation). There is no right CVA tenderness or left CVA tenderness. Musculoskeletal: Cervical back: Neck supple. Neurological: Mental Status: She is alert. {ASSESSMENT/PLAN: 1. Hematuria, unspecified type - ICD9: 599.70, ICD10: R31.9 - UA DIP, URINE (POC) -trace blood and small leukocyte esterase. - BACTERIAL CULTURE, URINE - SULFAMETHOXAZOLE 800 MG-TRIMETHOPRIM 160 MG TABLET x 7 days for recurrent UTI. Advised follow-up for blood in the urine with PCP or [facility] if culture is negative. Yifan Hill MD Differential Diagnoses - Urinary tract infection is more likely for the following reason(s): suggested by H&P and consistent with laboratory studies - Renal calculus is less likely for the following reason(s): No history of condition - Hematuria differential Procedures documented in this encounter [facility] 07-04-2025 Note HNO ID: [id number] Author: RACHEL LEY MD Service: ? Author Type: Physician Type: Progress Notes Filed: 07/04/2025 12:05 Note Text: Obstetrics and Gynecology [place] [facility] Visit Subjective Recording using ambient [employer]an[employer] software for draft documentation of the visit was discussed with the patient/authorized escrow representative; all questions welcomed and answered. Patient/authorized escrow representative agreed to proceed CHIEF COMPLAINT: The patient is a 55-year-old female presenting with symptoms suggestive of a urinary tract infection (UTI). HPI: Urinary Symptoms - Reports noticing blood in her urine, which prompted concern. - Experiences a constant urge to urinate, particularly in the evening, with minimal urine output. - Describes a slight stinging sensation during urination but denies significant pain. - Denies any back pain, chills, or fever. - Has not taken any ridz-cdb-cfkrsfk medications like Azo but has started drinking cranberry juice. - Recently began using a new body wash, which may have altered her vaginal pH. Vaginal Symptoms - Reports a fishy odor similar to when she was menstruating, but denies itching or burning. - Unsure if the odor is from the vagina or urine. - Denies any vaginal discharge - Sexually active, denies any pain or bleeding with intercourse. - No new sexual partners and no concerns for STDs. 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 Contraception: No contraception data on record PAST MEDICAL HISTORY Diagnosis Date Arthritis Asthma mild Snoring PAST SURGICAL HISTORY Procedure Laterality Date COLONOSCOPY 02/23/2019 EXTRACTION, ERUPTED TOOTH OR EXPOSED ROOT (ELEVATION AND/OR FORCEPS REMOVAL) TONSILLECTOMY HX FAMILY HISTORY Problem Relation Age of Onset Diabetes Mother Heart Mother Skin Cancer Mother melanoma Heart Father Prostate Cancer Father Parkinson's Father Social History Tobacco Use Smoking status: Never Smokeless tobacco: Never Vaping Use Vaping status: Never Used Substance Use Topics Alcohol use: No Drug use: No Current Outpatient Medications Medication Sig ipratropium bromide (ATROVENT) 42 mcg (0.06 %) nasal spray Use 2 Sprays in the nose three times a day. multivitamin tablet Take 1 tablet by mouth once daily. Cholecalciferol, Vitamin D3, 25 mcg (1,000 unit) cap Take 1,000 Units by mouth once daily. cetirizine (ZYRTEC) 10 mg tablet Take 10 mg by mouth once daily. psyllium husk (METAMUCIL ORAL) Take 1 Dose by mouth once daily. sulfamethoxazole-trimethoprim (BACTRIM DS) 800-160 mg per tablet Take 1 tablet by mouth two times a day for 3 days. phenazopyridine (PYRIDIUM) 200 mg tablet Take 1 tablet by mouth three times a day as needed for pain for up to 6 doses. No current facility-administered medications for this visit. ALLERGIES Allergen Reactions Iodinated Contrast * Other: See Comments Pt's mother had anaphylaxis with this dye so pt wanted this listed for herself Seasonal Allergies Other: See Comments Coughing sneezing Theodur [Theophylli* Other: See Comments palpitations REVIEW OF SYSTEMS: Constitutional: (+) fatigue, (-) chills Genitourinary: (+) hematuria, (+) urinary frequency, (+) dysuria, (+) vaginal odor, (-) flank pain, (-) vaginal pruritus, (-) vaginal burning, (-) dyspareunia, (-) vaginal bleeding Objective SENSITIVE EXAM: The sensitive examination was discussed with the Patient or Patient's Authorized Rx Specialist. As applicable, any other physician, advance practice provider, medical student, or other health professional student that will be observing or involved in the sensitive examination for educational or training purposes was discussed with the Patient or Authorized Rx Specialist. The Patient or Authorized Rx Specialist has agreed to proceed with the sensitive examination. (Sensitive examination includes inspection and/or palpation of the breasts, pelvis, prostate and anorectal regions). PHYSICAL EXAM: BP 126/72 Wt 208 lb (94.3kg) LMP 09/07/2013 GENERAL: Pleasant; no acute distress PULMONARY: normal inspiratory effort ABDOMEN: soft, non-tender, no masses : - PELVIC: external genitalia normal, normal Bartholin's glands, urethra, Lame Deer's glands, no vulvar lesions, no cervical lesions, good vaginal support, clear vaginal discharge, normal appearing perineal body and perianal region, - BIMANUAL: uterus normal size, shape and consistency, no adnexal masses, mild tenderness on bladder - Patient consent for exam received NEURO: alert and oriented x3 EXTREMITIES: normal Assessment AND Plan ASSESSMENT AND PLAN: 1. UTI symptoms (R39.9) 2. Gross hematuria (R31.0) (more content not included)... [facility] 05-03-2025 Discharge summary Note Date/Time May 03, 2025 7:00p [facility] Physical Therapy [facility] [address] [place] [address] / REHABILITATION SERVICES DISCHARGE SUMMARY MR#: [id number] Acct: [id number] Name: ADELINE PRATER Rep #: [id number] : 1970 55 From: Amor Collins PT, ATC Referring Dr.: Dr. Bruce Ferguson DO Status: REG RCR Insurance: [employer] SELF PAY INSURANCE Discharge Summary D/C summary: It has been my pleasure to treat ADELINE PRATER referred by Dr. Bruce Ferguson DO, with the diagnosis of B hip and knee pain for a total of 8 visit(s). Discharge Date: Please see the following information for a summary of their discharge status. Subjective Subjective: Pt reports all her relief has been temporary thus far Pain B hips: Pain Intensity (Out of 10): 2 Overall Improvement % Improvement: 0 Objective Objective/Function: B hip pain is 2/10 B hip IR ROM is WNL and equal bilaterally IT band flexibility has not really improved, but will continue to improve through HEP Pt is I with HEP Goals Goal 1:: Decrease B hip pain x 50% to aid with tolerating increased ambulation Goal Progress: Not Progressing Goal 2:: Increase B IT band flexibility to aid with decreasing B hip pain Goal Progress: Not Progressing Goal 3:: Increase B hip IR ROM x 1 grade to aid with decreasing hip pain Goal Progress: Progressing Goal 4:: I with HEP Goal Progress: Goal Met Plan Plan: Discontinue secondary to lack of improvement. Return to doctor D/C Information d/c sentence: If there are questions or concerns regarding this patient's physical therapy, please feel free to call me at [phone]. Thank you for the referral of thispatient. Sincerely, Amor Collins, PT, ATC Balance/Gait/Functional tests Balance/Special Test Scores Lower Extremity Functional Score: 29 Improvement % Improvement: 0 <Electronically signed by Amor Collins PT, ATC> 05/03/25 0968 CC: Dr. Rajan Olsen MD; Dr. Bruce Ferguson DO ~ [facility] Signed [facility] Work Phone: 1(109) 874-356006-05-2025 Discharge summary [facility] Physical Therapy [facility] [address] [place] [address] / REHABILITATION SERVICES DISCHARGE SUMMARY MR#: [id number] Acct: [id number] Name: ADELINE PRATER Rep #: [id number] : 1970 55 From: Amor Collins PT, ATC Referring Dr.: Dr. Bruce Ferguson DO Status: REG RCR Insurance: [employer] SELF PAY INSURANCE Discharge Summary D/C summary: It has been my pleasure to treat ADELINE PRATER referred by Dr. Bruce Ferguson DO, with the diagnosis of B hip and knee pain for a total of 8 visit(s). Discharge Date: Please see the following information for a summary of their discharge status. Subjective Subjective: Pt reports all her relief has been temporary thus far Pain B hips: Pain Intensity (Out of 10): 2 Overall Improvement % Improvement: 0 Objective Objective/Function: B hip pain is 2/10 B hip IR ROM is WNL and equal bilaterally IT band flexibility has not really improved, but will continue to improve through HEP Pt is I with HEP Goals Goal 1:: Decrease B hip pain x 50% to aid with tolerating increased ambulation Goal Progress: Not Progressing Goal 2:: Increase B IT band flexibility to aid with decreasing B hip pain Goal Progress: Not Progressing Goal 3:: Increase B hip IR ROM x 1 grade to aid with decreasing hip pain Goal Progress: Progressing Goal 4:: I with HEP Goal Progress: Goal Met Plan Plan: Discontinue secondary to lack of improvement. Return to doctor D/C Information d/c sentence: If there are questions or concerns regarding this patient's physical therapy, please feel free to call me at [phone]. Thank you for the referral of thispatient. Sincerely, Amor Collins, PT, ATC Balance/Gait/Functional tests Balance/Special Test Scores Lower Extremity Functional Score: 29 Improvement % Improvement: 0 05/03/25 [id number] CC: Dr. Rajan Olsen MD; Dr. Bruce Ferguson DO ~ [facility] Signed [facility]04-09-2025 Evaluation note* Diagnosis Onset Date Resolution Status Admit Date Greater trochanteric bursiti s of both hips acute March 07, 2025 8:30am Iliotibial band syndrome of both sides acute March 07, 2025 8:30am [facility] Work Phone: 1(653) 118-578703-19-2025 Radiology Diagnostic study note [facility] Imaging Services [address] [place] [address] Hips B/L min 2 views w/ Pelvis MR#: [id number] Acct: [id number] Name: ADELINE PRATER Rep #: [id number] : 1970 F 54 From: Deep Harrell DO PCP: Dr. Rajan Olsen MD Status: REG CL I Study:Hips B/L min 2 views w/ Pelvis Date of Exam: 02/14/25 Exam# [id number] Ordering Dr: Yamile Olsen MD PROCEDURE: Pelvis and bilateral hip radiographs REASON FOR EXAM: OSTEOARTHRITIS TECHNIQUE: Five views of the pelvis and both hips COMPARISON: No recent priors FINDINGS: See impression RAD/Hips B/L min 2 views w/ Pelvis IMPRESSION: Bilateral hip osteoarthritis, severe on the right including near [id number] articulation, subchondral sclerosis and marginal osteophytes. Mild right hip osseous remodeling also noted. Negative for acute displaced fracture ordislocation. Reading Location: [facility] CC: Dr. Rajan Olsen MD ~ Security Assessor: Signed [facility]03-04-2025 NoteHNO ID: [id number] Author: NA KWAN APRN.POLYSOMNOGRAPHIC TECH Service: ? Author Type: Nurse Practitioner Type: Progress Notes Filed: 01/30/2025 07:52 Note Text: Patient declined assistant director of residence life. Adeline is a 54 year old who presents for an annual gynecologic exam without complaints. Postmenopausal: Yes- Hx of PMB HRT use: No. 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 Contraception: No contraception data on record PAST MEDICAL HISTORY Diagnosis Date Arthritis Asthma mild Snoring PAST SURGICAL HISTORY Procedure Laterality Date COLONOSCOPY 02/23/2019 EXTRACTION, ERUPTED TOOTH OR EXPOSED ROOT (ELEVATION AND/OR FORCEPS REMOVAL) TONSILLECTOMY HX FAMILY HISTORY Problem Relation Age of Onset Diabetes Mother Heart Mother Skin Cancer Mother melanoma Heart Father Prostate Cancer Father Parkinson's Father SOCIAL HISTORY Social History Tobacco Use Smoking status: Never Smokeless tobacco: Never Vaping Use Vaping status: Never Used Substance Use Topics Alcohol use: No Drug use: No REVIEW OF SYSTEMS Abdomen: No abdominal pain, nausea, vomiting, diarrhea, or constipation. No bloating, early satiety, indigestion, or increased flatulence. Bladder: No dysuria, gross hematuria, urinary frequency, urinary urgency, or incontinence Breast: No breast lumps, nipple d/c, overlying skin changes, redness or skin retraction Allergies and current medication updated:Yes SENSITIVE EXAM: The sensitive examination was discussed with the Patient or Patient's Authorized Rx Specialist. As applicable, any other physician, advance practice provider, medical student, or other health professional student that will be observing or involved in the sensitive examination for educational or training purposes was discussed with the Patient or Authorized Rx Specialist. The Patient or Authorized Rx Specialist has agreed to proceed with the sensitive examination. (Sensitive examination includes inspection and/or palpation of the breasts, pelvis, prostate and anorectal regions). EXAM: BP 124/68 Ht 5' 5.906 (1.67m) Wt 202 lb 3.2 oz (91.7kg) LMP 09/07/2013 BMI 32.73 kg/(m2). GENERAL: pleasant, female in no apparent distress HEENT: Normocephalic, atraumatic, mucus membranes moist, and no lesions DERMATOLOGY: Normal, without lesions, non-icteric, and non-hirsute BREAST: soft, non-tender, symmetric, no dominant mass, normal nipple-areolar complex, no lymphadenopathy, and no nipple discharge CHEST: Normal inspiratory effort ABDOMEN: soft, non-tender, and no masses PELVIC: external genitalia normal, normal Bartholin's glands, urethra, Lame Deer's glands, no vulvar lesions, no cervical lesions, physiologic discharge present, normal appearing perineal body and perianal region BIMANUAL: uterus normal size, shape and consistency, no adnexal masses, and non-tender RECTOVAGINAL: deferred. NEURO: alert and oriented x3,exam grossly non-focal EXTREMITIES: normal ASSESSMENT/PLAN: 1) Health maintenance: Pap done with HPV. Mammogram ordered Mammogram up to date Nutrition, exercise and routine health maintenance exams reviewed. Calcium/Vitamin D supplementation information provided. Colon cancer screening: up to date with screening 2) Follow up one year or sooner as needed Na Kwan APRN.[facility] History of Present illness Narrative* Na Kwan APRN.POLYSOMNOGRAPHIC TECH - 01/30/2025 6:59 AM EST Patient declined assistant director of residence life. Adeline is a 54 year old who presents for an annual gynecologic exam without complaints. Postmenopausal: Yes- Hx of PMB HRT use: No. 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 Contraception: No contraception data on record PAST MEDICAL HISTORY Diagnosis Date Arthritis Asthma mild Snoring PAST SURGICAL HISTORY Procedure Laterality Date COLONOSCOPY 02/23/2019 EXTRACTION, ERUPTED TOOTH OR EXPOSED ROOT (ELEVATION AND/OR FORCEPS REMOVAL) TONSILLECTOMY HX FAMILY HISTORY Problem Relation Age of Onset Diabetes Mother Heart Mother Skin Cancer Mother melanoma Heart Father Prostate Cancer Father Parkinson's Father SOCIAL HISTORY Social History Tobacco Use Smoking status: Never Smokeless tobacco: Never Vaping Use Vaping status: Never Used Substance Use Topics Alcohol use: No Drug use: No REVIEW OF SYSTEMS Abdomen: No abdominal pain, nausea, vomiting, diarrhea, or constipation. No bloating, early satiety, indigestion, or increased flatulence. Bladder: No dysuria, gross hematuria, urinary frequency, urinary urgency, or incontinence Breast: No breast lumps, nipple d/c, overlying skin changes, redness or skin retraction Allergies and current medication updated:Yes SENSITIVE EXAM: The sensitive examination was discussed with the Patient or Patient's Authorized Rx Specialist. As applicable, any other physician, advance practice provider, medical student, or other health professional student that will be observing or involved in the sensitive examination for educational or training purposes was discussed with the Patient or Authorized Rx Specialist. The Patient or Authorized Rx Specialist has agreed to proceed with the sensitive examination. (Sensitive examination includes inspection and/or palpation of the breasts, pelvis, prostate and anorectal regions). EXAM: BP 124/68 Ht 5' 5.906 (1.67m) Wt 202 lb 3.2 oz (91.7kg) LMP 09/07/2013 BMI 32.73 kg/(m^2). GENERAL: pleasant, female in no apparent distress HEENT: Normocephalic, atraumatic, mucus membranes moist, and no lesions DERMATOLOGY: Normal, without lesions, non-icteric, and non-hirsute BREAST: soft, non-tender, symmetric, no dominant mass, normal nipple-areolar complex, no lymphadenopathy, and no nipple discharge CHEST: Normal inspiratory effort ABDOMEN: soft, non-tender, and no masses PELVIC: external genitalia normal, normal Bartholin's glands, urethra, Lame Deer's glands, no vulvar lesions, no cervical lesions, physiologic discharge present, normal appearing perineal body and perianal region BIMANUAL: uterus normal size, shape and consistency, no adnexal masses, and non-tender RECTOVAGINAL: deferred. NEURO: alert and oriented x3,exam grossly non-focal EXTREMITIES: normal ASSESSMENT/PLAN: 1) Health maintenance: Pap done with HPV. Mammogram ordered Mammogram up to date Nutrition, exercise and routine health maintenance exams reviewed. Calcium/Vitamin D supplementation information provided. Colon cancer screening: up to date with screening 2) Follow up one year or sooner as needed Na Kwan APRN.KIRSTIN documented in this encounterLouis [facility] Evaluation note* Diagnosis Onset Date Resolution Status Admit Date URI (upper respiratory infection) acute December 31 12:12pm [facility] Work Phone: 1(315) 768-618701-27-2025 History of Present illness Narrative* Trudy Canales Mammo Tech - 12/25/2024 8:10 AM EST Radiology Service Progress Note PATIENT NAME: Adeline Prater DATE OF SERVICE: December 25, 2024 TIME: 8:27 AM PATIENT IDENTITY VERIFICATION COMPLETED USING TWO (2) IDENTIFIERS: Name and Date of confirmedby patient verbally. FALL SCREENING: Has the patient had 2 falls in the last year or 1 fall with injury or currently using an Ambulatory Assistive Device (Walker, Cane, Wheelchair, Crutches, etc.)? No PATIENT GENDER DATA: Assigned female at . status: : No status:NO. PATIENT RELEVANT IMPLANT DATA REVIEWED: Not Applicable PATIENT PRESENTS WITH AN IMPLANTABLE OR ATTACHED ELECTRIC ACCOUNTING MACHINE OPERATOR: No RADIOLOGY DEPARTMENT: Mammography PERIPHERAL IV DATA: Not applicable SIGNED BY: Jo Ann Lainez December 25, 2024 8:27 AM documented in this encounterLouis [facility]01-27-2025 NoteHNO ID: [id number] Author: TRUDY CANALES Mammo Tech Service: ? Author Type: Passport Support Associate Type: Progress Notes Filed: 12/25/2024 08:27 Note Text: Radiology Service Progress Note PATIENT NAME: Adeline Prater DATE OF SERVICE: December 25, 2024 TIME: 8:27 AM PATIENT IDENTITY VERIFICATION COMPLETED USING TWO (2) IDENTIFIERS: Name and Date of confirmed by patient verbally. FALL SCREENING: Has the patient had 2 falls in the last year or 1 fall with injury or currently using an Ambulatory Assistive Device (Walker, Cane, Wheelchair, Crutches, etc.)? No PATIENT GENDER DATA: Assigned female at . status: : No status: NO. PATIENT RELEVANT IMPLANT DATA REVIEWED: Not Applicable PATIENT PRESENTS WITH AN IMPLANTABLE OR ATTACHED ELECTRIC ACCOUNTING MACHINE OPERATOR: No RADIOLOGY DEPARTMENT: Mammography PERIPHERAL IV DATA: Not applicable SIGNED BY: Harmony Lainezo iLost December 25, 2024 8:27 [facility]12-16-2024 Telephone encounter Note* Telephone Encounter - Na Kwan APRN.CNP - 11/13/2024 11:27 AM EST Order filed. Na Kwan APRN.CNP [facility]12-16-2024 Miscellaneous Notes* Telephone Encounter - Na Kwan APRN.CNP - 11/13/2024 11:27 AM EST Order filed. Na Kwan APRN.CNP * Telephone Encounter - Theresa Sandy RN - 11/13/2024 9:58 AM EST Please file mammogram order. Patient will be due for annual too. Theresa Sandy RN documented in this encounterLouis Stokes [facility]12-16-2024 Telephone encounter Note * Telephone Encounter - Theresa Sandy RN - 11/13/2024 9:58 AM EST Please file mammogram order. Patient will be due for annual too. Theresa Sandy RN [facility]11-08-2022 Miscellaneous Notes* Letter - Mammography Coordinator - 10/06/2022 10:42 AM EST October 07, 2022 PID: [id number] Adeline Prater [address] [place] [address] Dear Ms. Prater, We are pleased to inform you that the results of your recent breast imaging exam on 10/06/2022 are normal. Early detection of cancer is very important. We also understand recommendations regarding breast cancer screening are controversial. Please discuss with your primary care provider which strategy is best for you and whether a mammogram is right for you. Your imaging studies and report will be kept on file at [facility] as part of your permanent medical record and are available for your continuing care. Thank you for allowing us to help in meeting your health care needs. Sincerely, Dr. Torrez Interpreting Radiologist [facility] (Normal over 40) documented in this encounterLouis Stokes [facility]11-08-2022 History of Present illness Narrative* Na Kwan APRN.POLYSOMNOGRAPHIC TECH - 10/06/2022 7:56 AM EST Adeline is a 52 year old who presents for an annual gynecologic exam without complaints. Postmenopausal: Yes- Hx of PMB HRT use: No. 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 Contraception: No contraception data on record PAST MEDICAL HISTORY Diagnosis Date Arthritis Asthma mild Snoring PAST SURGICAL HISTORY Procedure Laterality Date COLONOSCOPY 02/23/2019 EXTRACTION, ERUPTED TOOTH OR EXPOSED ROOT (ELEVATION AND/OR FORCEPS REMOVAL) TONSILLECTOMY HX FAMILY HISTORY Problem Relation Age of Onset Diabetes Mother Heart Mother Skin Cancer Mother melanoma Heart Father Prostate Cancer Father SOCIAL HISTORY Social History Tobacco Use Smoking status: Never Smokeless tobacco: Never Vaping Use Vaping Use: Never used Substance Use Topics Alcohol use: No Drug use: No REVIEW OF SYSTEMS Abdomen: No abdominal pain, nausea, vomiting, diarrhea, or constipation. No bloating, early satiety, indigestion, or increased flatulence. Bladder: No dysuria, gross hematuria, urinary frequency, urinary urgency, or incontinence Breast: No breast lumps, nipple d/c, overlying skin changes, redness or skin retraction Allergies and current medication updated:Yes EXAM: Ht 5' 6.25 (1.68m) Wt 230 lb 6.4 oz (104.5kg) BMI 36.90 kg/(m^2). GENERAL: pleasant, female in no apparent distress HEENT: Normocephalic, atraumatic, and no lesions NECK: Supple, full range of motion, no adenopathy, and thyroid normal DERMATOLOGY: Normal, without lesions, non-icteric, and non-hirsute BREAST: soft, non-tender, symmetric, no dominant mass, normal nipple-areolar complex, no lymphadenopathy, and no nipple discharge +yeast under breast CHEST: Normal inspiratory effort ABDOMEN: soft, non-tender, and no masses PELVIC: external genitalia normal, normal Bartholin's glands, urethra, Lame Deer's glands, no vulvar lesions, no cervical lesions, physiologic discharge present, normal appearing perineal body and perianal region BIMANUAL: uterus normal size, shape and consistency, no adnexal masses, and non-tender RECTOVAGINAL: deferred. NEURO: alert and oriented x3,exam grossly non-focal EXTREMITIES: normal ASSESSMENT/PLAN: 1) Health maintenance: Pap/HPV up to date. Mammogram up to date Nutrition, exercise and routine health maintenance exams reviewed. Calcium/Vitamin D supplementation information provided. Colon cancer screening: up to date with screening 2) Follow up one year or sooner as needed 3) Routine labs ordered 4) Lotrisone ordered for skin yeast infection under breast Na Kwan APRN.KIRSTIN documented in this encounterLouis [facility]11-08-2022 History of Present illness Narrative* Raquel Cee RT(R) - 10/06/2022 7:30 AM EST Radiology Service Progress Note PATIENT NAME: Adeline Prater DATE OF SERVICE: October 06, 2022 TIME: 7:35 AM PATIENT IDENTITY VERIFICATION COMPLETED USING TWO (2) IDENTIFIERS: Name and Date of confirmedby patient verbally. FALL SCREENING: Has the patient had 2 falls in the last year or 1 fall with injury or currently using an Ambulatory Assistive Device (Walker, Cane, Wheelchair, Crutches, etc.)? No PATIENT GENDER DATA: Female. status: : No status: NO. PATIENT RELEVANT IMPLANT DATA REVIEWED: Not Applicable RADIOLOGY DEPARTMENT: Mammography PERIPHERAL IV DATA: Not applicable SIGNED BY: RT Lucio(R) October 06, 2022 7:35 AM * Shira Whitaker Mammo Tech - 10/06/2022 7:30 AM EST Radiology Service Progress Note PATIENT NAME: Adeline Prater DATE OF SERVICE: October 06, 2022 TIME: 7:33 AM PATIENT IDENTITY VERIFICATION COMPLETED USING TWO (2) IDENTIFIERS: Name and Date of confirmedby patient verbally. FALL SCREENING: Has the patient had 2 falls in the last year or 1 fall with injury or currently using an Ambulatory Assistive Device (Walker, Cane, Wheelchair, Crutches, etc.)? No PATIENT GENDER DATA: Female. status: : No status: NO. PATIENT RELEVANT IMPLANT DATA REVIEWED: Not Applicable RADIOLOGY DEPARTMENT: Mammography PERIPHERAL IV DATA: Not applicable SIGNED BY: Shira Whitaker Mammo Tech October 06, 2022 7:33 AM documented in this encounterLouis Stokes [facility]10-26-2022 Miscellaneous Notes* Telephone Encounter - Nu Boateng - 09/23/2022 8:[address] new screening mammo order as current one is and unable to use with 10/06/2022 appointment. documented in this encounterLouis Stokes [facility]04-11-2022 Instructions* Patient Instructions* King Gilmore - 03/09/2022 5:58 PM EDT CELLULITIS: Your exam shows you have an infection of the skin called cellulitis. This infection usually develops after an injury, cut, bite, or sting, but may occur without any known cause. Usually there is a localized area of redness, swelling, and pain which gets constantly bigger unless treatment is started. If cellulitis is severe or does not respond to initial treatment, hospital care with antibiotic injections may be needed. Treatment of cellulitis includes antibiotics along with resting and elevating the affected area until the infection improves. You should apply moist, warm compresses to the area for 30 minutes 4 times daily also. Please see your doctor if the pain and swelling from your infection are not better after two days of treatment. Call your doctor or go to the emergency department right away if you develop fever, chills, or other serious problems. You may require a tetanus booster if you are not current with your inmunizations. documented [facility] History of Present illness Narrative* Eliza Wolff APRN.POLYSOMNOGRAPHIC TECH - 03/09/2022 5:55 PM EDT Images from the original note were not included. This note was created using Jaeger. Subjective Adeline Prater is a 51 year old female who presents with a bug bite with increasing redness and swelling x 4 days. The lesion is painless, has no drainage, and was initially pruritic but is no longer itchy. She denies any fever, chills, shortness of breath, numbness, or tingling. Review of Systems Constitutional: Negative for chills, fatigue and fever. HENT: Negative. Eyes: Negative. Respiratory: Negative for cough and shortness of breath. Cardiovascular: Negative for chest pain and palpitations. Gastrointestinal: Positive for nausea. Negative for constipation, diarrhea and vomiting. Genitourinary: Negative. Musculoskeletal: Negative for arthralgias and myalgias. Skin: Positive for rash and wound. Negative for color change. Neurological: Negative for headaches. Hematological: Negative for adenopathy. Does not bruise/bleed easily. Psychiatric/Behavioral: Negative for confusion. Objective BP 138/80 Pulse 85 Temp 36.7 C (98 F) Resp 21 Wt 104.9 kg (231 lb 3.2 oz) SpO2 96% BMI 35.68 kg/m PAST MEDICAL HISTORY Diagnosis Date Arthritis Asthma mild Snoring PAST SURGICAL HISTORY Procedure Laterality Date COLONOSCOPY 02/23/2019 EXTRACTION, ERUPTED TOOTH OR EXPOSED ROOT (ELEVATION AND/OR FORCEPS REMOVAL) TONSILLECTOMY HX ALLERGIES Iodinated Contrast Media, Seasonal Allergies, and Theodur [Theophylline] MEDICATIONS multivitamin (DAILY MULTI-VITAMIN) tablet Take 1 tablet by mouth once daily. Cholecalciferol, Vitamin D3, (VITAMIN D) 25 mcg (1,000 unit) cap Take 1,000 Units by mouth once daily. cetirizine (ZYRTEC) 10 mg tablet Take 10 mg by mouth once daily. psyllium husk (METAMUCIL ORAL) Take 1 Dose by mouth once daily. meloxicam (MOBIC) 15 mg tablet Take 1 tablet by mouth once daily. cephALEXin (KEFLEX) 500 mg capsule Take 1 capsule by mouth four times daily for 5 days. fluticasone (FLONASE) 50 mcg/actuation nasal spray Use 2 Sprays in each nostril once daily. FAMILY HISTORY Problem Relation Age of Onset Diabetes Mother Heart Mother Skin Cancer Mother melanoma Heart Father Prostate Cancer Father Social History Tobacco Use Smoking status: Never Smoker Smokeless tobacco: Never Used Vaping Use Vaping Use: Never used Substance Use Topics Alcohol use: No Drug use: No Physical Exam Vitals reviewed. Constitutional: General: She is not in acute distress. Appearance: Normal appearance. HENT: Head: Normocephalic and atraumatic. Cardiovascular: Rate and Rhythm: Normal rate. Pulmonary: Effort: Pulmonary effort is normal. Musculoskeletal: General: Normal range of motion. Skin: General: Skin is warm and dry. Capillary Refill: Capillary refill takes less than 2 seconds. Coloration: Skin is not jaundiced. Findings: Erythema and lesion present. Neurological: General: No focal deficit present. Mental Status: She is alert and oriented to person, place, and time. Mental status is at baseline. Psychiatric: Mood and Affect: Mood normal. Behavior: Behavior normal. Assessment and Plan ASSESSMENT/PLAN: 1. Erysipelas - ICD9: 035, ICD10: A46 - Keep area clean and dry - Seek emergency care if fever, chills, or spread outside of outlined margins develops - CEPHALEXIN 500 MG CAPSULE King Gilmore TEACHING PROVIDER (Physician/PA/NET LEAD ARCHITECT) NOTE OF PERSONAL INVOLVEMENT IN CARE: I have personally seen and examined the patient and performed the medical decision-making components. I have reviewed the Advanced Practice Registered Nurse (NET LEAD ARCHITECT) Student's documentation and verified the findings in the note as written. Any additions or changes are noted in bold/italics. Signature: Eliza Wolff Date: 03/09/2022 Time: 6:20 PM [facility] Diagnosis Erysipelas- Primary documented in [facility]* Diagnosis Encounter for screening mammogram for malignant neoplasm of breast- Primary Other screening mammogram documented in this encounter [facility] note* Diagnosis Encounter for gynecological examination (general) (routine) without abnormal findings- Primary Encounter for screening mammogram for breast cancer Laboratory exam ordered as part of routine general medical examination Laboratory examination ordered as part of a routine general medical examination Skin yeast infection Candidiasis of skin and nails documented in this [facility]* Diagnosis Encounter for screening mammogram for malignant neoplasm of breast Other screening mammogram documented in this encounter [facility] noteNo assessment information availableWMetro[facility] Work Phone: Evaluation note* Diagnosis Encounter for screening mammogram for malignant neoplasm of breast- Primary Other screening mammogram documented in this encounter [facility] note* Diagnosis Encounter for screening mammogram for malignant neoplasm of breast Other screening mammogram documented in this encounter [facility] note* Diagnosis Encounter for gynecological examination (general) (routine) without abnormal findings- Primary Encounter for screening for human papillomavirus (HPV) Special screening examination for human papillomavirus (HPV) Pap smear for cervical cancer screening Screening for malignant neoplasm of the cervix Encounter for screening mammogram for breast cancer documented in this encounter [facility] note* Diagnosis Hematuria, unspecified type- Primary documented in this encounter [facility] for referral (narrative)* Diagnostic Procedure Only (Routine) - Pending Review Specialty Diagnoses / Procedures Referred By Contnakul t Referred To Contact [facility] Diagnoses Encounter for screening mammogram for malignant neoplasm of breast Procedures JONN SCREENING SCREENING MAMMOGRAPHY BI 2-VIEW BREAST INC Dena Combs APRN.POLYSOMNOGRAPHIC TECH [address] [place] [address] [facility] [address] [place] [address] Referral ID Status Reason Start Date Expiration Date Visits Requested Visits Authorized [id number] Pending Review Auto-Generat ed Referral 10/23/2023 1 1 [facility] for referral (narrative)* Diagnostic Procedure Only (Routine) - Pending Review Specialty Diagnoses / Procedures Referred By Contac t Referred To Contact [facility] Diagnoses Encounter for screening mammogram for breast cancer Procedures JONN SCREENING SCREENING MAMMOGRAPHY BI 2-VIEW BREAST INC CAD Na Kwan APRN.POLYSOMNOGRAPHIC TECH [address] [place] [address] [facility] [address] [place] [address] Referral ID Status Reason Start Date Expiration Date Visits Requested Visits Authorized [id number] Pending Review Auto-Generat ed Referral 10/06/2022 11/05/2023 1 1 [facility] for referral (narrative)* Diagnostic Procedure Only (Routine) - Closed Specialty Diagnoses / Procedures Referred By Contac t Referred To Contact [facility] Diagnoses Encounter for screening mammogram for malignant neoplasm of breast Procedures JONN SCREENING SCREENING MAMMOGRAPHY BI 2-VIEW BREAST INC CAD Dena Helton APRN.POLYSOMNOGRAPHIC TECH [address] [place] [address] [facility] [address] [place] [address] Referral ID Status Reason Start Date Expiration Date V isits Requested Visits Authorized [id number] Closed Auto-Generate d Referral 09/28/2022 11/28/2022 1 1 [facility] for referral (narrative)* Diagnostic Procedure Only (Routine) - New Request Specialty Diagnoses / Procedures Referred By Contac t Referred To Contact [facility] Diagnoses Encounter for screening mammogram for malignant neoplasm of breast Procedures JONN SCREENING W DAVID SCREENING DIGITAL BREAST TOMOSYNTHESIS BI SCREENING MAMMOGRAPHY BI 2-VIEW BREAST INC CAD Na Kwan, NET LEAD ARCHITECT.POLYSOMNOGRAPHIC TECH [address] [place] [address] [facility] [address] [place] [address] Referral ID Status Reason Start Date Expiration Date Visits Requested Visits Authorized [id number] New Request Auto-Generat ed Referral 12/13/2025 1 1 [facility] for referral (narrative)No reason for referral information availableWMetro[facility] Work Phone: Reason for visit Narrative* Diagnostic Procedure Only (Routine) - Closed Specialty Diagnoses / Procedures Referred By Ekta mckeon Referred To Contact [facility] Diagnoses Encounter for screening mammogram for malignant neoplasm of breast Procedures JONN SCREENING SCREENING MAMMOGRAPHY BI 2-VIEW BREAST INC CAD Dena Helton, NET LEAD ARCHITECT.POLYSOMNOGRAPHIC TECH [address] [place] [address] [facility] [address] [place] [address] Referral ID Status Reason Start Date Expiration Date V isits Requested Visits Authorized [id number] Closed Auto-Generate d Referral 09/28/2022 11/28/2022 1 1 [facility] for visit Narrative* Diagnostic Procedure Only (Routine) - Closed Specialty Diagnoses / Procedures Referred By Ekta mckeon Referred To Contact [facility] Diagnoses Encounter for screening mammogram for malignant neoplasm of breast Procedures JONN SCREENING W DAVID SCREENING DIGITAL BREAST TOMOSYNTHESIS BI SCREENING MAMMOGRAPHY BI 2-VIEW BREAST INC CAD Na Kwan, NET LEAD ARCHITECT.POLYSOMNOGRAPHIC TECH [address] [place] [address] [facility] [address] [place] [address] Referral ID Status Reason Start Date Expiration Date V isits Requested Visits Authorized [id number] Closed Auto-Generate d Referral 11/13/2024 12/13/2025 1 1 [facility] Advance Directives No Advanced Directives Records FoundDocuments on File Type Date Recorded Patient Rx Specialist Expl anation Advance Directive(s) 02/23/2019 8:18 AM Family History No Family History Records Found Relationship Condition Age at Onset Recorded Date/T felicia grandmother Malignant neoplasm of colon Unknown Cardiac disease Unknown Hypertension Unknown Cerebrovascular accident (CVA) Unknown grandfather Cardiac disease Unknown father Diabetes mellitus Unknown mother Malignant neoplasm Unknown Diabetes mellitus Unknown Chief Complaint and Reason for Visit Chief Complaint Admit Date SORE THROAT December 31, 2024 1 2:12pm osteoarthritis- BOTH HIPS February 14 4:39pm Reason for Visit Admit Date URI (upper respiratory infection) Februa 2024 12:12pm Chief Complaint Admit Date osteoarthritis- BOTH HIPS February 14 4:39pm BL HIPS March 07, 2025 8:30 am RM 1 March 07, 2025 8:49 am MANJIT HIP PAIN,MANJIT KN PAIN/RX HERE April 6:00pm Reason for Visit Admit Date Greater trochanteric bursitis of both hi ps March 07, 2025 8:30am Iliotibial band syndrome of both sides A pril 2024 8:30am Summary Purpose Additional Source Comments Source Comments (unrecognize d section and content) In the event this informatio n is protected by the Federal Confidentiality of Alcohol and Drug Abuse Patient Records regulations: The Federal rules restrict any use of the information to criminally investigate or prosecute any alcohol or drug abuse patient.[facility] CenterIn the event this information is protected by the Federal Confidentiality of Alcohol and Drug Abuse Patient Records regulations: The Federal rules restrict any use of the information to criminally investigate or prosecute any alcohol or drug abuse patient.[facility] CenterIn the event this information is protected by the Federal Confidentiality of Alcohol and Drug Abuse Patient Records regulations: The Federal rules restrict any use of the information to criminally investigate or prosecute any alcohol or drug abuse patient.[facility] CenterIn the event this information is protected by the Federal Confidentiality of Alcohol and Drug Abuse Patient Records regulations: The Federal rules restrict any use of the information to criminally investigate or prosecute any alcohol or drug abuse patient.[facility] CenterIn the event this information is protected by the Federal Confidentiality of Alcohol and Drug Abuse Patient Records regulations: The Federal rules restrict any use of the information to criminally investigate or prosecute any alcohol or drug abuse patient.[facility] CenterIn the event this information is protected by the Federal Confidentiality of Alcohol and Drug Abuse Patient Records regulations: The Federal rules restrict any use of the information to criminally investigate or prosecute any alcohol or drug abuse patient.[facility] CenterIn the event this information is protected by the Federal Confidentiality of Alcohol and Drug Abuse Patient Records regulations: The Federal rules restrict any use of the information to criminally investigate or prosecute any alcohol or drug abuse patient.[facility] CenterIn the event this information is protected by the Federal Confidentiality of Alcohol and Drug Abuse Patient Records regulations: The Federal rules restrict any use of the information to criminally investigate or prosecute any alcohol or drug abuse patient.[facility] CenterIn the event this information is protected by the Federal Confidentiality of Alcohol and Drug Abuse Patient Records regulations: The Federal rules restrict any use of the information to criminally investigate or prosecute any alcohol or drug abuse patient.[facility] CenterIn the event this information is protected by the Federal Confidentiality of Alcohol and Drug Abuse Patient Records regulations: The Federal rules restrict any use of the information to criminally investigate or prosecute any alcohol or drug abuse patient.[facility] Reason for Visit (unrecogniz ed section and content) Reason Comments Insect Bite infected bug bite x 4 days Reason Comments Orders Reason Comments Yearly Exam With Mammogram Reason Comments Well Woman Reason Comments Urinary Problem Possible uti, blood in urine, frequency x 2 weeks Care Teams (unrecognized sec tion and content) Real Estate Director Relationship Specialty Start Date End Date Dena Larios [address] [place] [address] PCP - General Family Practice 02/23/19 Real Estate Director Relationship Specialty Start Date End Date Dena Larios [address] [place] [address] PCP - General Family Medicine 02/23/19 Real Estate Director Relationship Specialty Start Date End Date Dena Larios [address] [place] [address] PCP - General Family Medicine 02/23/19 Real Estate Director Relationship Specialty Start Date End Date Dena Larios [address] [facility] [address] [place] [address] PCP - General Family Medicine 02/23/19 Real Estate Director Relationship Specialty Start Date End Date Dena Larios [address] [place] [address] PCP - General Family Medicine 02/23/19 Team Status: Active Member Role Status Dates Dr. Dena Larios MD Family Provider Active Dr. Dena Larios MD Primary Care Provider Active Team Status: Inactive Member Role Status Dates Dr. Dena Larios MD Primary Care Provider, Attendin g Provider Active Real Estate Director Relationship Specialty Start Date End Date Dena Larios [address] [facility] [address] [place], [place] [address] PCP - General Family [facility] 02/23/19 Team Status: Active Member Role Status Dates Dr. Dena Larios MD Family Provider Active Rajan Olsen MD Primary Care Provider Active Team Status: Inactive Member Role Status Dates Rajan Olsen MD Primary Care Provider Active St art: December 22, 2024 End: December 22, 2024 Zahraa Isaac BALANCE WHEEL ARM BURNISHER, BALANCE WHEEL ARM BURNISHER-C Attending Provider Active Start: December 22, 2024 End: December 22, 2024 Team Status: Inactive Member Role Status Melo Olsen MD Primary Care Provider Active St art: December 31, 2024 End: December 31, 2024 Rajan Olsen MD Referring Provider Active Start : December 31, 2024 End: December 31, 2024 JOSUE Brown Attending Provider Active Start: December 31, 2024 End: December 31, 2024 Team Status: Inactive Member Role Status Melo Olsen MD Primary Care Provider Active St art: February 14, 2025 End: February 14, 2025 Rajan Olsen MD Attending Provider Active Start : February 14, 2025 End: February 14, 2025 Rajan Olsen MD Referring Provider Active Start : February 14, 2025 End: February 14, 2025 Real Estate Director Relationship Specialty Start Date End Date Dena Larios [address] [facility] [address] [place] [address] PCP - [facility] Medicine 02/23/19 Team Status: Active Member Role Status Melo Olsen MD Primary Care Provider Active Team Status: Inactive Member Role Status Melo Olsen MD Primary Care Provider Active St art: March 07, 2025 End: March 07, 2025 Rajan Olsen MD Referring Provider Active Start : March 07, 2025 End: March 07, 2025 Dr. Bruce Ferguson DO Attending Provider Active Start: March 07, 2025 End: March 07, 2025 Team Status: Inactive Member Role Status Dates Rajan Olsen MD Primary Care Provider Active St art: March 07, 2025 End: March 07, 2025 Dr. Jeff Leija MD Attending Provider Active S tart: March 07, 2025 End: March 07, 2025 Team Status: Inactive Member Role Status Dates Rajan Olsen MD Primary Care Provider Active St art: May 03, 2025 End: May 03, 2025 Dr. Bruce Ferguson DO Attending Provider Active Start: May 03, 2025 End: May 03, 2025 Dr. Bruce Ferguson , Referring Provider Active Start: May 03, 2025 End: May 03, 2025 Real Estate Director Relationship Specialty Start Date End Date Rajan Olsne MD [address] [place] [address] PCP - General Internal Medicine 07/18/25 Goals (unrecognized section and content) Goals may be documented in a n alternate sectionGoals may be documented in an alternate sectionGoals may be documented in an alternate section INFORMATION SOURCE (unrecogn ized section and content) DATE CREATED AUTHOR 05/08/2025 [facility] DATE CREATED AUTHOR AUTHOR'S SUN GLASS 07/20/2025 [facility] FOR RECORDS PERTAINING TO PATIENTS WHO ARE OR HAVE BEEN ENROLLED IN A CHEMICAL DEPENDENCY/SUBSTANCEABUSE PROGRAM, SOME INFORMATION MAY BE OMITTED. This clinical summary was aggregated from multiple sources. Caution should be exercised in using it in the provision of clinical care. This summary normalizes information from multiple sources, and as a consequence, information in this document may materially change the coding, format and clinical context of patient data. In addition, data may be omitted in some cases. CLINICAL DECISIONS SHOULD BE BASED ON THE PRIMARY CLINICAL RECORDS. [employer] provides no warranty or guarantee of the accuracy or completeness of information in this document.
[2025-09-01 12:01] LABS: Vitamin B12 756 pg/mL (180-914); Vitamin D,25 Hydroxy 39.2 ng/mL (30-100)
== END 2025-09-01 23:59 | disposition home or self-care (01) ==
LOC: LAB 10:15
PROVIDERS: PCP Family Medicine; Referring Provider Family Medicine; Visit Provider Family Medicine
DX: Z00.00 Encounter for general adult medical examination without abnormal findings (principal)
CPT/HCPCS: 36415; 82306; 82607